=== PATIENT | male | born 1990 | race Caucasian/White ===

== ENCOUNTER → 2025-03-09 | Outpatient (CLI) | payer OTHER, SELFPAY ==
[2025-03-09 17:14] LABS: Hematocrit 42.6 % (40-54); Hemoglobin 14.6 g/dL (13.0-16.5); Immature Granulocytes Count 0.050 X10^3/uL (0.0-0.0); Mean Corp Hgb Conc 34.3 g/dL (32-36); Mean Corpuscular Volume 83.4 fL (80-94); Mean Platelet Vol. 9.0 fl (6.2-12.0); NRBC Flagged by Analyzer 0 % (0-5); Platelet Count 355 K/mm3 (150-450); RBC Distribution Width CV 12.7 % (11.6-14.6); RBC Distribution Width SD 38.2 fl (35.1-43.9); Red Blood Count 5.11 M/mm3 (4.6-6.2); White Blood Count 11.1 K/mm3 (4.4-11.0)
[2025-03-09 17:50] LABS: AST(SGOT) 22 U/L (<=37); Alanine Aminotransfer ALT/SGPT 22 U/L (<=46); Albumin, Serum 4.1 g/dL (3.5-5.0); Alkaline Phosphatase 102 U/L (40-129); Anion Gap 12 (5-15); BUN 16 mg/dL (4-19); BUN/Creat Ratio 13.2 RATIO (10-20); CRP 8.61 mg/L (0.0-3.0); Calcium,Total 9.4 mg/dL (7.6-11.0); Carbon Dioxide 24.3 mmol/L (21.0-32.0); Chloride 102 mmol/L (98-108); Globulin 2.9 g/dL (2.2-4.2); Glucose 93 mg/dL (70-99); Potassium 4.4 mmol/L (3.3-5.1)
--- OUTSIDE RECORDS SUMMARY | 2025-03-09 23:24 | XMS RPT_ITS | CCD ---
Author Organization [facility] ion [facility] Care Team Providers Care Manager Clinical Services Name Role Phone Unavailable Primary Care Provider Unavailobed ISAAC CHIEF CUSTOMER OFFICER-BC, ZAIRA Crespo Unavailable BALTIC Unavailable Unavailable SURGERY, GENERAL Unavailable Unavailable DANYA ACE, NAVEEN Staples Unavailable Nini Yo Unavailable Unavailable USHA ACE, CIARA Guerra Unavailable Zak HOUSER MD Unavailable [phone] Blanca ISAAC MD Unavailable Jayna Burden Unavailable Unavailable RANJIT ACE, GIANCARLO Arellano Unavailable [phone] BOBBY BRUNER Unavailable Unavailable Edison SMITH, Yoalnda Unavailable Unavailable Unavailable Unavailable JASPREET SMITH, ESTRELLA Unavailable Unavaila Nini Marie Unavailable Unavailable PIEDAD VILLAVICENCIO Unavailable MARLIN ACE, BRIANNA Unavailable Dr. Mai Houser MD Primary Care Provider Dr. Mai Houser MD Referring Provider [phone] Praneeth LOWERY Attending Provider FriendPraneeth Attending Unavailable Mai Houser Referring Unavailable Mai Houser Primary Care Unavailable Praneeth Salinas Attending Unavailable Praneeth Salinas Referring Unavailable Mai Houser Primary Care Unavailable Medications Current Medications Medication Drug Class(es) Dates Sig (Normalized) Sig (Original) [id number] 200 actuat albuterol 0.09 mg/actuat metered dose inhaler (19 sources) beta2-Adrenergic Agonist Start: 03-09-2025 Albuterol Sulfate (Ventolin Hfa) 90 mcg/actuation HFA aerosol inhaler Active 2 NMA INHALATION EVERY 6 HOURS as needed March 09, 2025 12:00am Start: 01-19-2025 albuterol sulf ate HFA 90 mcg/actuation aerosol inhaler ; 2 (two) inhalation up to q 6 hours prn wheezing for 30 days Quantity: 18 {Gram} Refills: 11 Ordered: 19-Jan-2025 MD Zak HOUSER Start: 19-Jan-2025 Comments: Please dispense the most cost-effective generic albuterol HFA. Start: 12-21-2023 albuterol sulf ate HFA 90 mcg/actuation aerosol inhaler ; 2 (two) inhalation up to q 6 hours prn wheezing for 30 days Quantity: 18 {Gram} Refills: 11 Ordered: 21-Dec-2023 TRUMAN ISAAC Start: 21-Dec-2023 Comments: Please dispense the most cost-effective generic albuterol HFA. Start: 01-14-2021 End: 11-01-2022 take 2 puff(s) by inhalation every four hours as needed ProAir HFA 90 mcg/actuation inhalation HFA Aerosol with Adapter ; 2 (two) Puff(s) every four hours as needed tightness for 30 days Quantity: 1 {Cartridge} Refills: 5 Ordered: 01-Nov-2022 MD Zak HOUSER Start: 14-Jan-2021 End: 01-Nov-2022 Status: Discontinued Comments: Medication taken as needed. Discontinued by Medication vendor. Comment on above: Please dispense the most cost-effective generic albuterol HFA. Medication taken as needed. Discontinued by Medication vendor. amoxicillin 875 mg / clavulanate 125 mg oral tablet (6 sources) Penicillin-class Antibacterial Start: 01-19-2025 amoxicillin 875 mg-potassium clavulanate 125 mg tablet ; 1 (one) tablet BID for 10 days Quantity: 20 {Tablet} Refills: 0 Ordered: 19-Jan-2025 MD Zak HOUSER Start: 19-Jan-2025 Start: 06-16-2024 End: 06-26-2024 amoxicillin 875 mg-potassium clavulanate 125 mg tablet ; 1 (one) tablet BID for 10 days Quantity: 20 {Tablet} Refills: 0 Ordered: 30-Jun-2024 MD Zak HOUSER Start: 16-Jun-2024 End: 26-Jun-2024 Status: Inactive 12 hr cetirizine hydrochloride 5 mg / pseudoephedrine hydrochloride 120 mg extended release oral tablet (10 sources) alpha-Adrenergic Agonist, Histamine-1 Receptor Antagonist Start: 03-09-2025 take 1 tablet by mouth every twelve hours Cetirizine-Pseudoephedrine (Zyrtec-D) 5-120 mg tablet extended release 12 hr Active 1 {tbl} PO TWICE A DAY March 09, 2025 12:00am Start: 04-18-2022 take 1 tablet by christen th twice daily ZyrTEC-D 5-120 mg oral Tablet, Extended Release 12 hr ; 1 (one) Tablet two times daily for 30 days Quantity: 60 {Tablet} Refills: 5 Ordered: 01-Nov-2022 SARAH VOGEL Start: 18-Apr-2022 Completed/Discontinued Medications Medication Drug Class(es) Dates Sig (Normalized) Sig (Original) amoxicillin 250 mg oral capsule (18 sources) Penicillin-class Antibacterial Start: 11-01-2022 End: 11-11-2022 take 1 capsule by mouth three times daily amoxicillin 250 mg oral capsule ; 1 (one) capsule tid for 10 days Quantity: 30 {Capsule} Refills: 0 Ordered: 14-Dec-2022 MD Zak HOUSER Start: 01-Nov-2022 End: 11-Nov-2022 Status: Inactive Start: 04-18-2022 End: 04-28-2022 take 1 capsule by mouth three times daily Amoxicillin 500 MG Oral Capsule ; 1 (one) Capsule three times daily for 10 days Quantity: 30 {Capsule} Refills: 0 Ordered: 01-Nov-2022 MD NAVEEN HAGAN Start: 18-Apr-2022 End: 28-Apr-2022 Status: Inactive azithromycin 250 mg oral tablet (20 sources) Macrolide Antimicrobial Start: 07-08-2021 End: 07-13-2021 Azithromycin 250 MG Oral Tablet ; 2 (two) Tablet on day one, then 1 tablet daily for 4 days for 5 days Quantity: 6 {Tablet} Refills: 0 Ordered: 18-Apr-2022 MD NAVEEN HAGAN Start: 08-Jul-2021 End: 13-Jul-2021 Status: Inactive Start: 12-07-2017 End: 12-12-2017 Azithromycin 250 MG Oral Tab let ; 2 (two) Tablet on day one, then 1 tablet daily for 4 days for 5 days Quantity: 6 {Tablet} Refills: 0 Ordered: 20-Nov-2018 MD NAVEEN HAGAN Start: 07-Dec-2017 End: 12-Dec-2017 Status: Inactive Start: 10-14-2014 End: 10-19-2014 AZITHROMYCIN, 250MG (Oral Ta blet) ; 2 x 1 then 1 x 4 Tablet daily for 5 days Quantity: 6 {Tablet} Refills: 0 Ordered: 12-Jan-2015 MD Zak HOUSER Start: 14-Oct-2014 End: 19-Oct-2014 Status: Inactive Comments: take two tablets day one and then one tablet daily for 4 days Comment on above: take two tablets day one and then one tablet daily for 4 days dicyclomine hydrochloride 20 mg oral tablet (9 sources) Anticholinergic Start: End: 016 take 1 tablet by mouth at bedtime as needed DICYCLOMINE HCL, 20MG (Oral Tablet) ; 1 (one) Tablet qac and hs prn irritable bowel syndrome for 7 days Quantity: 28 {Tablet} Refills: 3 Ordered: 03-Jan-2016 Start: 05-May-2015 End: 03-Jan-2016 Status: Inactive 12 hr guaiFENesin 1200 mg / pseudoephedrine hydrochloride 120 mg extended release oral tablet (9 sources) alpha-Adrenergic Agonist Start: 015 End: 015 MUCINEX D, 120-1200MG (Oral Tablet Extended Release 12 Hour) ; 1 (one) Tablet ER 12HR two times daily, as needed for 9 days Quantity: 18 {Tablet} Refills: 0 Ordered: 12-Jan-2015 MD Zak HOUSER Start: 14-Oct-2014 End: 23-Oct-2014 Status: Inactive Comments: Medication taken as needed. Comment on above: Medication taken as needed. hydrocortisone 25 mg/ml topical lotion (9 sources) Corticosteroid Start: 012 End: 06-19-2 012 HYDROCORTISONE, 2.5% (External Lotion) ; 1 (one) application apply 2 times daily for 7 days Quantity: 1 {tube} Refills: 0 Ordered: 17-Apr-2013 MD GIANCARLO BURDEN Start: 23-Jan-2012 End: 30-Jan-2012 Status: Inactive Comments: avoid eyes Comment on above: avoid eyes hydrocortisone 10 mg/ml / neomycin 3.5 mg/ml / polymyxin b [id number] unt/ml otic solution (9 sources) Aminoglycoside Antibacterial, Polymyxin-class Antibacterial, Corticosteroid Start: End: neomycin-polymyxin- hydrocort 3.5 mg/mL-10,000 unit/mL-1 % ear solution ; 4 drops Left ear 4 times daily for 7 days Quantity: 1 {Each} Refills: 0 Ordered: 21-Dec-2023 TRUMAN ISAAC Start: 15-Dec-2022 End: 22-Dec-2022 Status: Inactive levoFLOXacin 750 mg oral tablet (9 sources) Quinolone Antimicrobial Start: End: levoFLOXacin 750 mg tablet ; 1 Tablet daily for 5 days Quantity: 5 {Tablet} Refills: 0 Ordered: 26-Dec-2023 TRUMAN ISAAC Start: 21-Dec-2023 End: 26-Dec-2023 Status: Inactive loratadine 10 mg oral tablet (9 sources) take 1 tablet by mouth once daily CLARITIN, 10MG (Oral Tablet) ; 1 daily (10 MG) Status: Inactive predniSONE 10 mg oral tablet (20 sources) Start: End: predniSONE 10 mg tablet ; 6 Tablets days 1,2,3; 4 tablets days 4,5,6; 2 tablets days 7,8,9; 1 tablet days 10,11,12. for 12 days Quantity: 40 {Tablet} Refills: 0 Ordered: 16-Jun-2024 MD Zak HOUSER Start: 07-Apr-2024 End: 19-Apr-2024 Status: Inactive Comments: Take with food. Start: 01-03-2016 End: 12-07-2017 PREDNISONE (AKANKSHA), 10MG (Oral Tablet) ; Tablet D 1-3=6tab daily D 4-6=4tab D 7-9=2tab [id number] for 0 days Quantity: 40 {Tablet} Refills: 0 Ordered: 07-Dec-2017 Start: 03-Jan-2016 End: 07-Dec-2017 Status: Discontinued Comments: This order discontinued per [facility]. Start: 01-12-2015 End: 05-05-2015 take 3 tablets by mouth once daily, then take 2 tablets by mouth once daily PREDNISONE, 20MG (Oral Tablet) ; 3 (three) Tablet daily for 3 days, then 2 tabs daily till gone for 0 days Quantity: 19 {Tablet} Refills: 0 Ordered: 05-May-2015 Start: 12-Jan-2015 End: 05-May-2015 Status: Inactive Start: 01-23-2012 End: 02-04-2012 PREDNISONE (AKANKSHA), 10MG (Oral Tablet) ; Tablet D1-3=4tab D4-6=3tab; D7-9=2tab; [id number] for 12 days Quantity: 30 {Tablet} Refills: 0 Ordered: 17-Apr-2013 MD GIANCARLO BURDEN Start: 23-Jan-2012 End: 04-Feb-2012 Status: Inactive Comments: Days 1,2,3 = 4 tabs daily; Days 4, 5, 6 = 3 tabs daily; Days 7, 8, 9 = 2 tabs daily; Days 10,11,12 = 1 tab daily Comment on above: Days 1,2,3 = 4 tabs daily; Days 4, 5, 6 = 3 tabs daily; Days 7, 8, 9 = 2 tabs daily; Days 10,11,12 = 1 tab daily This order discontin ued per [employer]. Take with food. sulfamethoxazole 800 mg / trimethoprim 160 mg oral tablet (9 sources) Dihydrofolate Reductase Inhibitor Antibacterial, Sulfonamide Antimicrobial Start: 05-07-20 14 End: 05-17-20 14 take 1 tablet by mouth twice daily BACTRIM DS, 800-160MG (Oral Tablet) ; 1 (one) Tablet two times daily for 10 days Quantity: 20 {Tablet} Refills: 0 Ordered: 20-May-2014 MD CIARA KERR Start: 07-May-2014 End: 17-May-2014 Status: Inactive Problems Active Problems Problem Classification Problem Date Documented Da te Episodic/Chronic Abdominal pain (20 sources) Generalized abdominal pain; Translations: [Generalized abdominal pain] Onset: 03-09-2025 12-21-2023 Episodic Allergic reactions (20 sources) Contact dermatitis and other eczema due to plants [except food]; Translations: [Contact dermatitis and other eczema due to other specified agents] 04-17-2013 Episodic Asthma (20 sources) Exacerbation of asthma; Translations: [Unspecified asthma with (acute) exacerbation] 01-03-2016 Chronic Chronic obstructive pulmonary disease and bronchiectasis (20 sources) Bronchitis; Translations: [Bronchitis, not specified as acute or chronic] 07-08-2021 Episodic Diverticulosis and diverticulitis (16 sources) Diverticulitis; Translations: [Diverticulitis of intestine, part unspecified, without perforation or abscess without bleeding] Onset: 03-09-2025 06-16-2024 Chronic Other ear and sense organ disorders (18 sources) Decreased hearing ; Translations: [Unspecified hearing loss, bilateral] 12-15-2022 Chronic Other ear and sense organ disorders (18 sources) Acute otitis externa of left ear; Translations: [Unspecified acute noninfective otitis externa, left ear] 12-15-2022 Episodic Other ear and sense organ disorders (20 sources) Impacted cerumen of bilateral ears; Translations: [Impacted cerumen, bilateral] 12-15-2022 Episodic Other gastrointestinal disorders (20 sources) Irritable bowel syndrome; Translations: [Irritable bowel syndrome without diarrhea] 05-05-2015 Chronic Other gastrointestinal disorders (1 source) Irritable bowel syndrome without diarrhea; Translations: [Irritable bowel syndrome, unspecified] Onset: 03-09-2025 Chronic Other gastrointestinal disorders (9 sources) Diarrhea; Translations: [Diarrhea, unspecified] 05-07-2014 Episodic Other nutritional; endocrine; and metabolic disorders (3 sources) Weight gain; Translations: [Abnormal weight gain] 05-05-2015 Episodic Other nutritional; endocrine; and metabolic disorders (6 sources) Weight increased; Translations: [Abnormal weight gain] 05-05-2015 Episodic Other skin disorders (9 sources) Ingrowing nail 05-07-2014 Episodic Other upper respiratory disease (20 sources) Seasonal allergy; Translations: [Other seasonal allergic rhinitis] 04-18-2022 Chronic Other upper respiratory disease (9 sources) Acute bronchospasm 01-06-2012 Episodic Other upper respiratory infections (20 sources) Acute bacterial pharyngitis; Translations: [Acute pharyngitis due to other specified organisms] 04-18-2022 Episodic Skin and subcutaneous tissue infections (9 sources) Cellulitis and abscess of toe; Translations: [Cellulitis of unspecified toe] 05-07-2014 Episodic Superficial injury; contusion (16 sources) Insect bite of upper limb; Translations: [Insect bite (nonvenomous) of right upper arm, initial encounter] 04-07-2024 Episodic Past or Other Problems Problem Classification Problem Date Documented Da te Episodic/Chronic Asthma (3 sources) Asthma 01-19-2025 Headache; including migraine (9 sources) Headache; including migraine 01-06-2012 Unclassified (9 sources) Abdominal Pain, Male - Symptoms do not include nausea, vomiting or diarrhea. The pain is located in the entire abdomen. The patient describes the pain as aching. Onset was 8 day(s) ago. Associated symptoms do not include fever, bloody stool or dark urine. Note for Abdominal pain: Pain in the abdomen when sitting or lifting, and pain goes down to right legs and R testocles. 12-21-2023 Unclassified (9 sources) Ear pain - The ear pain has been occurring for 1 day. It is both ears. The ear pain is characterized as a pressure sensation, sharp pain and stabbing pain. There has been associated decreased hearing, difficulty sleeping, headache and inability to 'pop' ears, while there has been no chills, ear discharge, fever, nasal congestion, nasal discharge/stuffy nose, recent swimming, runny nose, sinus problems or sore throat. Note for Ear pain: The right one was hurting last night. A little pressure in right ear today, but left one still hurts bad today. 12-15-2022 Unclassified (9 sources) Sore throat - Note for Sore throat: Pt. reports sore throat x 24 hrs. along with symptoms of fatigue, achiness, head/nasal congestion and headache. Denies cough or fever. Pt. states spouse tested positive for Strep Throat on 10/28/22 and is concerned he may have same. 11-01-2022 Unclassified (9 sources) Sore throat - Note for Sore throat: Pt. states started with sore throat - especially left side, 3 days ago. States has generalized body aches and fatigue. Denies fever, cough, head congestion. Pt. further states his son tested positive for Strep on 04/15/22. Pt. states did home COVID test on 04/15, 04/16, 04/17 and all negative. 04-18-2022 Unclassified (9 sources) Cough - The onset of the cough has been acute and has been occurring for weeks. The symptoms have been associated with runny nose and sore throat, while the symptoms have not been associated with fever. Note for Cough: Cough is worse at night, eyes get matted shut, and has used inhaler occasionally. Negative COVID test. and kids have been sick too. 07-08-2021 Unclassified (9 sources) Allergic Rhinitis.. - Symptoms include sneezing, runny nose, itchy eyes and wheezing. Onset was day(s) ago. Note for Allergic Rhinitis..: Pt would like a refill on inhaler. 01-14-2021 Unclassified (9 sources) cough - The cough has been occurring for 1 week. Note for cough: Was achy, had fever 2 days ago, some sore throat, feels SOB with exertion,also has allergies. needs refill of nhaler. 12-07-2017 Unclassified (9 sources) Cold Symptoms - Symptoms include nasal congestion and postnasal drainage. Associated symptoms include wheezing and shortness of breath. Note for Cold symptoms: Patient has been using Zyrtec for allergies and started using his inhalor to relieve symptoms. Symptoms worsened on sunday01/01/2016 and have not improved 01-03-2016 Unclassified (9 sources) !Patient notification of lab results 1 - Rust. The test(s) that you had done were/was blood work (This was basically normal). You should call our office if you have any questions. Please follow up as scheduled and let us know if your symptoms do not improve. 05-06-2015 Unclassified (3 sources) Abdominal Pain, Male - Symptoms include abdominal pain. The pain is located in the right lower quadrant and on the right side more than the left. Onset was 1 year(s) ago. Note for Abdominal pain: Pt. states he has had this pain for over a year, the pain use to be once a month but now is daily. Pt. wonders if he has a hernia or mother has Chrohns Disease. Here for exam. Bowels have been fine. Normal. Moves pretty much every day. Here for exam. 05-05-2015 Unclassified (3 sources) [ADDITIONAL REASON] Thyroid problems - Note for Thyroid problems: Pt. states he sweats alot,and has had weight gain. Pts. states his father was recently diagnosed with Thyroid problems. 05-05-2015 Unclassified (9 sources) Shortness of breath.. - Symptoms include dyspnea, fatigue, weakness, cough and wheezing. Onset was 1 day(s) ago. The patient describes this as worsening. Associated symptoms include sore throat (and headache). Note for Shortness of breath: . 01-12-2015 Unclassified (9 sources) Congestion - Symptoms include cough, fever, nasal congestion, nasal drainage, postnasal drip, runny nose and sore throat. Onset was week(s) ago. The symptoms occur intermittently. Associated symptoms include fatigue and headache. Note for Congestion: Here for exam. 10-14-2014 Unclassified (9 sources) !Patient notification of lab results 1 - Usha. The test(s) that you had done were/was a stool culture and c&s. The results of your testing were negative . Please continue your current medication/therapy. 05-14-2014 Unclassified (2 sources) Abdominal pain - The onset of the abdominal pain has been sudden and has been occurring in an intermittent pattern for 2 months. The course has been constant. The abdominal pain is described as being located in the periumbilical area. The symptoms are relieved by bowel movements. The symptoms have been associated with abdominal distention and diarrhea. Note for Abdominal pain: HOneymoon early February [place] 05-07-2014 Unclassified (2 sources) [ADDITIONAL REASON] Ingrown Toenail - Pt. c/o left [place] toenail x 1 month. Is painful to walk and run. 05-07-2014 Unclassified (9 sources) Poison Laura - The onset of the rash has been acute and has been occurring in persistent pattern for 4 days. The course has been increasing. 04-17-2013 Unclassified (9 sources) Rash - The rash has been occurring for 5 days. The course has been increasing. The rash is characterized as red. The rash was first seen on the upper extremity. It spread to the lower extremity. 01-23-2012 Unclassified (9 sources) sore throat - The onset of the sore throat has been sudden and has been occurring in a persistent pattern for 3 days. The symptoms have been associated with change in voice, chills, cough, fever, post-nasal drip, runny nose and sinus pain. 07-24-2011 Unclassified (8 sources) Rash - The onset of the rash has been acute and has been occurring in a persistent pattern for 4 days. The course has been increasing. The rash is characterized as red and raised above the skin. The patient was possibly exposed while other: working outdoors. The rash was first seen on the upper extremity. It spread to the trunk. There has been associated itching. 04-07-2024 Unclassified (8 sources) [ADDITIONAL REASON] Insect Bite/Sting - The insect causing the bite/sting is thought to be a spider. The patient sustained an insect bite/sting to the right arm. This occurred 4 day(s) ago. Presenting symptoms included itching at the site of the bite/sting and redness at the site of the bite/sting. Symptoms include single bite or sting. 04-07-2024 Unclassified (6 sources) Thyroid problems - Note for Thyroid problems: Pt. states he sweats alot,and has had weight gain. Pts. states his father was recently diagnosed with Thyroid problems. 05-05-2015 Unclassified (6 sources) [ADDITIONAL REASON] Abdominal Pain, Male - Symptoms include abdominal pain. The pain is located in the right lower quadrant and on the right side more than the left. Onset was 1 year(s) ago. Note for Abdominal pain: Pt. states he has had this pain for over a year, the pain use to be once a month but now is daily. Pt. wonders if he has a hernia or mother has Chrohns Disease. Here for exam. Bowels have been fine. Normal. Moves pretty much every day. Here for exam. 05-05-2015 Unclassified (7 sources) Ingrown Toenail - Pt. c/o left [place] toenail x 1 month. Is painful to walk and run. 05-07-2014 Unclassified (7 sources) [ADDITIONAL REASON] Abdominal pain - The onset of the abdominal pain has been sudden and has been occurring in an intermittent pattern for 2 months. The course has been constant. The abdominal pain is described as being located in the periumbilical area. The symptoms are relieved by bowel movements. The symptoms have been associated with abdominal distention and diarrhea. Note for Abdominal pain: HOneymoon early February [place] 05-07-2014 Unclassified (5 sources) Sinusitis - The sinusitis has been occurring in a persistent pattern for 2 weeks. It is characterized as a pressure sensation. There has been associated fatigue, muscle aches and nasal stuffiness, while there has been no cough or fever. Note for Sinusitis: Pt. also reports chest feels tight at times and is short of breath - unsure if due to his asthma. Using Albuterol inhaler and Zyrtec. 06-16-2024 Unclassified (5 sources) [ADDITIONAL REASON] Abdominal Pain, Male - Note for Abdominal pain: Pt. reports low abdominal pain. States believes due to constipation. 06-16-2024 Unclassified (3 sources) [ADDITIONAL REASON] Irritable Bowel Syndrome - Note for Irritable bowel syndrome: Pt. reports flare up. Sharp pain in abdomen and lower back noted 01/15/25. Has been taking stool softeners, which in the past has been effective. No diarrhea or nausea/vomiting. 01-19-2025 Unclassified (1 source) Abdominal Pain, Male - Note for Abdominal pain: Pt. reports low abdominal pain. States believes due to constipation. 06-30-2024 Unclassified (1 source) [ADDITIONAL REASON] Sinusitis - The sinusitis has been occurring in a persistent pattern for 2 weeks. It is characterized as a pressure sensation. There has been associated fatigue, muscle aches and nasal stuffiness, while there has been no cough or fever. Note for Sinusitis: Pt. also reports chest feels tight at times and is short of breath - unsure if due to his asthma. Using Albuterol inhaler and Zyrtec. 06-30-2024 Results Test Name Value Interpretation Reference Range Facility SALLY Comprehensive Panelon SALLY TABLE TNP Normal [facility] Comment on above: Performed By: #### L [id number] #### [facility] [address] [place], [address] Gastroenterology Visit Repor ton 03-09-2025 Gastroenterology Visit Report [facility] Gastroenterology [address] [place] [address] OFFICE VISIT Date of Service: 03/09/25 MR#: [id number] Acct: [id number] Name: ROSA MARIA SPARKS Rep #: [id number] : 1990 Provider: Praneeth Salinas DO Age/Sex: 34/M Location: [facility] Status: Signed Intake Intake Visit Reasons: PRE COLONOSCOPY Allergies No Known Allergies Allergy (Verified 03/09/25 09:02) Medications ???Medication ???Instructions ???Recorded ???Confirmed ???Type albuterol sulfate 90 mcg/actuation 2 puff inhalation Q6H PRN 03/09/25 History aerosol inhaler (Ventolin HFA) cetirizine 5 mg-pseudoephedrine ER 1 tab PO BID 03/09/25 03/09/25 H istory 120 mg tablet,extended release,12hr (Zyrtec-D) PFSH Medical History (Updated 03/09/25 @ 16:[address] Praneeth Salinas DO) Generalized abdominal pain Diverticulitis Irritable bowel syndrome without diarrhea Social History (Updated 03/09/25 @ 15:37 by Lucretia Wilson) Smoking Status: Never smoker alcohol intake: never substance use type: does not use what type of physical activity do you participate in: walking frequency: daily HPI HPI Details: ROSA MARIA SPARKS, is a 34 M who presents to the office today for initial consult. *[facility]I established with referral from PCP for evaluation of IBS / diverticulitis-type symptoms. pt reports he has had two flares about a year apart, will have alternating bowels, abd pain, and gas / bloating; denies blood in stool. Pt reports last flare was end of December / early January of this year. Pt reports that certain foods seem to upset his stomach more and states that his mother has Ulcerative Colitis. Denies current GI symptoms of concern. ROS Const Constitutional: No fatigue, fever(s) or weight change ENT ENT: No difficulty swallowing Gastro GI: Positive for abdominal pain, bloating, change in bowel habits, constipation, diarrhea and excessive flatus; No belching, change in stool character, coffee ground emesis, cramping, heartburn, difficulty swallowing, feeling full early, incontinent of stools, Vomiting blood/hematemesis, Blood in stool, loose stools, Black,tarry stools, nausea/dyspepsia, pain with swallowing, vomiting or other Musc Musculoskeletal: No joint pain Skin Skin: No yellowing of the eye or itchy eyes Psych Psychiatric: No anxiety and No depression Endo Endocrine: No fatigue or weight change Aller/Imm Allergy/Immunologic: No itchy eyes Jean Marie/Lymp Hematologic/Lymphatic: No easy bleeding or easy bruising Exam Const General: cooperative, healthy appearing and comfortable Nutritional Appearance: average body habitus, well nourished and cachectic Orientation: alert, awake and oriented x3 HENMT Head: normal to inspection Ears: hearing grossly normal bilaterally Nose: external nose normal Face and sinus: normal facial exam Mouth: oral mucosae normal Eyes General: appearance normal, both eyes and all related structures Eyelids: eyelids normal Conjunctivae: conjunctivae normal Sclera: sclerae normal Neck Thyroid: thyroid normal Resp Effort Inspection: normal respiratory effort Auscultation: Bilateral: Clear to Auscultation Cardio Rate: regular rate Rhythm: regular rhythm GI Inspection: normal to inspection Auscultation: normal bowel sounds Percussion: normal to percussion Palpation: no hepatosplenomegaly Rectal Exam: deferred Assessment and Plan Assessment and Plan (1) Generalized abdominal pain: Status: Acute (2) Diverticulitis: Status: Acute (3) Irritable bowel syndrome without diarrhea: Status: Acute Plan: 34-year-old male presenting with abdominal pain, which he describes as cramping and occurring mainly after eating. * Reports alternating episodes of diarrhea and constipation. * Family history of ulcerative colitis (UC) reported,???. * No other associated symptoms such as fever, weight loss, or blood in stool reported at this time. Objective * Vitals:???Within normal limits. * Abdominal Examination:???Mild tenderness noted on palpation of the lower left quadrant. No distension or guarding observed. Bowel sounds are normoactive. * Rectal Exam:???Deferred at this time, though a rectal exam could be used to check for inflammation around the anus or blood in the stool. Assessment * 34-year-old male presenting with gastrointestinal symptoms suggestive of inflammatory bowel disease (IBD), specifically ulcerative colitis (UC) or Crohn's disease (CD), given the presence of abdominal pain, alternating diarrhea and constipation, and a family history of UC. * Differential diagnoses also include Irritable Bowel Syndrome (IBS), celiac disease, and infectious enterocolitis. * Although IBS and IBD share some symptoms, IBS does not cause inflammation or physical damage to the digestive tract. * Celiac (more content not included)... Normal [facility] No Panel Informationon 01-20 [employer] No Panel Informationon 01-19 [employer] No Panel Informationon 06-30 [employer] No Panel Informationon 06-19 [employer] No Panel Informationon 06-16 [employer]. No Panel Informationon 04-08 [employer] No Panel Informationon 04-07 [employer] .GFRon 03-20-2024 GFR >60 Normal [facility] ([place]) Comment on above: Result Comment: GFR Population mean for , Non- Americans Ages 20-29 = 116 mL/min/1.73 sq.m. Ages 30-39 = 107 mL/min/1.73 sq.m. Ages 40-49 = 99 mL/min/1.73 sq.m. Ages 50-59 = 93 mL/min/1.73 sq.m. Ages 60-69 = 85 mL/min/1.73 sq.m. Ages 70+ = 75 mL/min/1.73 sq.m. Chronic Kidney Disease: Less than 60 mL/min/1.73 square meters End Stage Renal Disease: Less than 15 mL/min/1.73 square meters Performed By: #### L IPID, CMP, GFR #### [place] [address] GFR Non- >60 Normal [facility] ([place]) Comment on above: Result Comment: GFR Population mean for , Non- Americans Ages 20-29 = 116 mL/min/1.73 sq.m. Ages 30-39 = 107 mL/min/1.73 sq.m. Ages 40-49 = 99 mL/min/1.73 sq.m. Ages 50-59 = 93 mL/min/1.73 sq.m. Ages 60-69 = 85 mL/min/1.73 sq.m. Ages 70+ = 75 mL/min/1.73 sq.m. Chronic Kidney Disease: Less than 60 mL/min/1.73 square meters End Stage Renal Disease: Less than 15 mL/min/1.73 square meters Performed By: #### L IPID, CMP, GFR #### [address] [address] CMPon 03-20-2024 Albumin Level 3.7 G/dL Normal 3.2-4.8 [facility] ([place]) Comment on above: Order Comment: healt h fair: beldin brick Performed By: #### L IPID, CMP, GFR #### [address] [address] Albumin/Globulin [Mass ratio] 1.3 {ratio} Normal 0.9-1.6 [facility] ([place]) Comment on above: Order Comment: healt h fair: [employer] Performed By: #### L IPID, CMP, GFR #### [address] [address] ALP [Catalytic activity/Vol] 109 U/L Normal 38-126 [facility] ([place]) Comment on above: Order Comment: healt h fair: [employer] Performed By: #### L IPID, CMP, GFR #### [place] [id number] [place] [id number] ALT [Catalytic activity/Vol] 42 U/L Normal 12-55 [facility] ([place]) Comment on above: Order Comment: healt h fair: [employer] Performed By: #### L IPID, CMP, GFR #### [address] [address] AST [Catalytic activity/Vol] 26 U/L Normal 8-34 [facility] ([place]) Comment on above: Order Comment: healt h loy: [employer]din [employer] Performed By: #### L IPID, CMP, GFR #### [address] [address] Bili Total 1.00 mg/dL Normal 0.20-1.20 [facility] ([place]) Comment on above: Order Comment: healt h fair: [employer] Result Comment: Use of this assay is not recommended for patients undergoing treatment with eltrombopag due to the potential for falsely elevated results. Performed By: #### L IPID, CMP, GFR #### [address] [address] BUN/Creatinine Ratio 19.1 ratio Normal 10.0-22.0 [facility] ([place]) Comment on above: Order Comment: healt h fair: [employer] Performed By: #### L IPID, CMP, GFR #### [address] [address] Calcium [Mass/Vol] 9.6 mg/dL Normal 8.7-10.4 [facility] ([place]) Comment on above: Order Comment: healt h fair: beldin brick Performed By: #### L IPID, CMP, GFR #### [address] [address] Chloride [Moles/Vol] 106 mmol/L Normal 98-110 [facility] ([place]) Comment on above: Order Comment: healt h fair: [employer] Performed By: #### L IPID, CMP, GFR #### [address] [address] CO2 [Moles/Vol] 30 mmol/L Normal 22-32 [facility] ([place]) Comment on above: Order Comment: healt h fair: [employer] Performed By: #### L IPID, CMP, GFR #### [address] [address] Creatinine [Mass/Vol] 0.89 mg/dL Normal 0.60-1.40 [facility] ([place]) Comment on above: Order Comment: healt h fair: [employer]din [employer] Performed By: #### L IPID, CMP, GFR #### [address] [address] Electrolyte Balance 4.0 mEq/L Normal 4.0-15.0 [facility] ([place]) Comment on above: Order Comment: healt h fair: [employer]din [employer] Performed By: #### L IPID, CMP, GFR #### [address] [address] Globulin 2.9 G/dL Normal 1.5-3.8 [facility] ([place]) Comment on above: Order Comment: healt h fair: [employer]din [employer] Performed By: #### L IPID, CMP, GFR #### [address] [address] Glucose [Mass/Vol] 93 mg/dL Normal 70-110 [facility] ([place]) Comment on above: Order Comment: healt h fair: [employer]din [employer] Performed By: #### L IPID, CMP, GFR #### [address] [address] Potassium [Moles/Vol] 4.5 mmol/L Normal 3.5-5.0 [facility] ([place]) Comment on above: Order Comment: healt h fair: [employer]din [employer] Performed By: #### L IPID, CMP, GFR #### [address] [address] Sodium [Moles/Vol] 140 mmol/L Normal 136-145 [facility] ([place]) Comment on above: Order Comment: healt h fair: [employer]din [employer] Performed By: #### L IPID, CMP, GFR #### [address] [address] Total Protein 6.6 G/dL Normal 5.7-8.2 [facility] ([place]) Comment on above: Order Comment: healt h fair: [employer]din [employer] Result Comment: No te - New Reference Range in effect 20 Performed By: #### L IPID, CMP, GFR #### [address] [address] Urea nitrogen [Mass/Vol] 17.0 mg/dL Normal 8.0-22.0 [facility] ([place]) Comment on above: Order Comment: healt h fair: [employer] Performed By: #### L IPID, CMP, GFR #### [address] [address] LIPIDon 03-20-2024 Cholesterol [Mass/Vol] 161 mg/dL Normal 50-199 [facility] ([place]) Comment on above: Order Comment: healt h fair: [employer] Result Comment: Chol esterol Reference Interval: Less than 200 Desirable 200-239 Borderline high risk 240 and above High risk Performed By: #### L IPID, CMP, GFR #### [address] [address] Cholesterol in HDL [Mass/Vol] 39 mg/dL Low 40-59 [facility] ([place]) Comment on above: Order Comment: healt h fair: [employer] Performed By: #### L IPID, CMP, GFR #### [address] [address] Cholesterol in LDL [Mass/Vol] 104 mg/dL Normal 0-129 [facility] ([place]) Comment on above: Order Comment: healt h fair: [employer]din [employer] Performed By: #### L IPID, CMP, GFR #### [address] [address] Triglyceride [Mass/Vol] 91 mg/dL Normal 3-149 [facility] ([place]) Comment on above: Order Comment: healt h fair: [employer]din [employer] Performed By: #### L IPID, CMP, GFR #### [address] [address] No Panel Informationon 12-20 [facility] Laboratory - Microbiology an d Antimicrobial susceptibilityon 11-01-2022 S. pneumoniae Ag LA Ql (Unsp spec) Positive Abnormal [facility] [id number] 05-25-2021 SARS-CoV-2 (COVID-19) RNA BINA+probe Ql (Unsp spec) SEE SEPARATE REPORT Normal [facility] Comment on above: Result Comment: SPEC IMEN SENT TO A MISCELLANEOUS LAB SEE SCANNED RESULTS FOR TESTING FACILITY INFORMATION CHEST-ONE VIEW ONLY - CXR1on 05-23-2021 CHEST-ONE VIEW ONLY - CXR1 [place] [address] Name: ROSA MARIA SPARKS Phys: KAMILLA MUNOZ D.O. : [birth year] Age: 31 Sex: M Acct: [id number] Loc: ED Exam Date: 05/23/21 Status: REG ER Radiology No.: [id number] Unit Number: [id number] Exam # Type/Exam [id number] RAD / CHEST-ONE VIEW ONLY - CXR1 EXAMINATION: ONE XRAY VIEW OF THE CHEST 05/23/2021 6:45 am COMPARISON: None. HISTORY: Cough. Congestion. Short of breath. FINDINGS: The heart size and mediastinal contours are normal. There is no lung infiltrate or edema. No pneumothorax or pleural fluid is present. The skeletal structures are unremarkable. IMPRESSION: No acute radiographic abnormality of the chest. Electronically signed By Purnima Shanks MD 05/23/2021 6:47:04 AM EST Workstation ID : [id number] < > Reported By: PURNIMA SHANKS M.D. Signed In Fluency By: PURNIMA SHANKS M.D. << Signature on File>> Reported By: PURNIMA SHANKS M.D. Signed By: PURNIMA SHANKS M.D. Tests performed at: [place] [address] Normal [facility] ED PROV NOTEon 05-23-2021 ED PROV NOTE HNO ID: [id number] Author: Kamilla Munoz Service: ? Author Type: Physician Type: ED Provider Notes Filed: 06/03/2021 8:08 AM Note Text: [place] [address] HEALTH INFORMATION MANAGEMENT EMERGENCY DEPARTMENT REPORT Patient: ROSA MARIA SPARKS ELLEN K D.O. [id number] [age] M Status: [facility] ER ED Date of Service: 05/23/21 This is a 31-year-old whose chief complaint is cough and congestion, feels short of breath. HISTORY OF PRESENT ILLNESS: The patient says he has had symptoms for a week. His entire family has been sick. One of his children who was tested for COVID and was negative. He denies a fever, but he is here tonight because he has a burning sensation in his chest when he coughs anything. His is worried that he has pneumonia. He is not having diarrhea. He has only had a cough and sputum production. He denies any abdominal pain, change in bowel habits. REVIEW OF SYSTEMS: Remainder of 10-point review of systems is negative. SOCIAL HISTORY: He is vaccinated x2. He is . Does not smoke, drink, or use drugs of abuse. MEDICATIONS: Zyrtec. ALLERGIES: None. PHYSICAL EXAMINATION: VITAL SIGNS: Stable. He is afebrile. GENERAL: Alert. A well-developed, well-nourished, pleasant male in no distress. HEENT: Head is atraumatic, normocephalic. No scleral icterus. No nasal drainage. Oral mucosa pink, moist. NECK: Supple. CARDIAC: On auscultation, regular. LUNGS: Breath sounds clear. Respirations are unlabored. ABDOMEN: Benign. EXTREMITIES: Intact x4 without clubbing, cyanosis, edema. NEURO: I do not appreciate focal deficits. SKIN: Warm and dry. EMERGENCY DEPARTMENT COURSE: In the emergency department, I did do a chest x-ray, it is negative. We did send a COVID swab as well. I think it is probably a viral process given that has gone to the households, so I do not think antibiotics will be useful for him at this time. He is certainly satting well. I expect him to continue to do well. We will write him for an MDI with spacer. Report#: Dict ID [id number] / Int ID [id number] 06/03/21 0804 KAMILLA MUNOZ D.O. cc: KAMILLA MUNOZ D.O.; GIANCARLO BURDEN M.D. << Signature on File>> Reported By: KAMILLA MUNOZ D.O. Signed By: KAMILLA MUNOZ D.O. Tests performed at: [facility] [address] [place], [place] [address] Normal [facility] EMERGENCY DEPARTMENT REPORTo n 05-23-2021 EMERGENCY [place]PARTMENT [place] [address] HEALTH INFORMATION MANAGEMENT EMERGENCY DEPARTMENT REPORT Patient: ROSA MARIA SPARKS KAMILLA MUNOZ D.O. [id number] [age] M Status: [facility] ER ED Date of Service: 05/23/21 This is a 31-year-old whose chief complaint is cough and congestion, feels short of breath. HISTORY OF PRESENT ILLNESS: The patient says he has had symptoms for a week. His entire family has been sick. One of his children who was tested for COVID and was negative. He denies a fever, but he is here tonight because he has a burning sensation in his chest when he coughs anything. His is worried that he has pneumonia. He is not having diarrhea. He has only had a cough and sputum production. He denies any abdominal pain, change in bowel habits. REVIEW OF SYSTEMS: Remainder of 10-point review of systems is negative. SOCIAL HISTORY: He is vaccinated x2. He is . Does not smoke, drink, or use drugs of abuse. MEDICATIONS: Zyrtec. ALLERGIES: None. PHYSICAL EXAMINATION: VITAL SIGNS: Stable. He is afebrile. GENERAL: Alert. A well-developed, well-nourished, pleasant male in no distress. HEENT: Head is atraumatic, normocephalic. No scleral icterus. No nasal drainage. Oral mucosa pink, moist. NECK: Supple. CARDIAC: On auscultation, regular. LUNGS: Breath sounds clear. Respirations are unlabored. ABDOMEN: Benign. EXTREMITIES: Intact x4 without clubbing, cyanosis, edema. NEURO: I do not appreciate focal deficits. SKIN: Warm and dry. EMERGENCY DEPARTMENT COURSE: In the emergency department, I did do a chest x-ray, it is negative. We did send a COVID swab as well. I think it is probably a viral process given that has gone to the households, so I do not think antibiotics will be useful for him at this time. He is certainly satting well. I expect him to continue to do well. We will write him for an MDI with spacer. Report#: Dict ID [id number] / Int ID [id number] 06/03/21 0804 KAMILLA MUNOZ D.O. cc: KAMILLA MUNOZ D.O.; GIANCARLO BURDEN M.D. << Signature on File>> Reported By: KAMILLA MUNOZ D.O. Signed By: KAMILLA MUNOZ D.O. Tests performed at: [place] [id number] Normal [facility] No Panel Informationon 05-23 [facility] - Chemistry and C hemistry - challengeon 05-05-2015 Bilirubin Ql (U) Negative Normal [employer] [facility] [employer] Ketones Ql (U) Negative Normal [facility] [employer], [employer] pH (U) 5.0 [pH] Normal [facility] [employer], [employer] Specific gravity (U) [Rel density] 1.020 Normal [facility] [employer] Laboratory - Hematology and Cell countson 05-05-2015 Hemoglobin Ql (U) Negative Normal [employer] [facility] Laboratory - Specimen inform ationon 05-05-2015 Appearance (U) CLEAR Normal [employer] Color (U) YELLOW Normal [facility] [employer], [employer] Laboratory - Urinalysison Glucose Test strip (U) [Mass/Vol] Negative Normal [employer] [facility] [employer] [facility] [place], [employer]. Leukocyte esterase Test strip Ql (U) Negative Normal [facility].; [facility] Nitrite Ql (U) Negative Normal [facility].; [facility] [employer] [facility] [place], Inc. Protein Ql (U) Negative Normal [facility], Inc.; [facility] [employer] [facility] [place], Inc. No Panel Informationon 05-05 UA - ODOR Negative Normal [facility].; [facility], [facility] UA - UROBILIGEN 0.2 Normal [facility] [employer] [facility], [employer] Laboratory - Microbiology an d Antimicrobial susceptibilityon 07-24-2011 S. pyogenes Ag EIA Ql (Throat) Negative [facility] [employer] [facility] [employer] [facility] [place], [employer]. Vital Signs Date Time Vital Sign Value Performing Clinician Facility 01-19-2025 16:090400 Body height 180.34 cm ESTRELLA VOGEL RN [facility] [employer] [facility]. 01-19-2025 16:09-0400 Body mass index (BMI) [Ratio] 28.45 kg/m2 ESTRELLA VOGEL RN [facility] [employer] [facility] [employer] [facility] [place], [employer]. 01-19-2025 16:09-0400 Body surface area Derived from formula 2.13 m2 ESTRELLA VOGEL RN [facility] [employer] [facility] [employer] [facility]. 01-19-2025 16:09-0400 Body temperature 98.6 [degF] ESTRELLA VOGEL RN [facility] [employer] [facility] [employer] [facility]. Comment on above: Method: Oral 01-19-2025 16:09-0400 Body weight 92.53 kg ESTRELLA VOGEL RN [facility] [employer] [facility] [employer] [facility] [place]. 01-19-2025 16:09-0400 Diastolic blood pressure 84 mm[Hg] ESTRELLA VOGEL RN [facility] [employer] [facility]. Comment on above: Patient Position: Sitting; Cuff Location : Left Arm; Cuff Size: Standard 01-19-2025 16:09-0400 Heart rate 94 /min ESTRELLA VOGEL RN [facility], [employer] [facility]. Comment on above: Pattern: Regular 01-19-2025 16:09-0400 Inhaled oxygen concentration 21 % ESTRELLA VOGEL RN [facility] [employer] [facility] [place]. Comment on above: Room air 01-19-2025 16:09-0400 SaO2% (BldA) [Mass fraction] 99 % ESTRELLA VOGEL RN [facility]. 01-19-2025 16:09-0400 Systolic blood pressure 114 mm[Hg] ESTRELLA VOGEL RN [facility] [employer] [facility]. Comment on above: Patient Position: Sitting; Cuff Location : Left Arm; Cuff Size: Standard 06-16-2024 16:04-0500 Body height 180.34 cm ESTRELLA VOGEL RN [facility], [employer].; [facility], Inc[facility] 06-16-2024 16:04-0500 Body mass index (BMI) [Ratio] 29.43 kg/m2 ESTRELLA VOGEL RN [facility], Inc.; [facility]. 06-16-2024 16:04-0500 Body surface area Derived from formula 2.16 m2 ESTRELLA VOGEL RN [facility], Inc.; [facility] [employer] [facility]. 06-16-2024 16:04-0500 Body temperature 98.5 [degF] ESTRELLA VOGEL RN [facility].; [facility] [employer] [facility] [place]. Comment on above: Method: Oral 06-16-2024 16:040500 Body weight 95.71 kg ESTRELLA VOGEL RN [facility] [employer] [facility] [place].; [facility] [employer] [facility] [place]. 06-16-2024 16:04-0500 Diastolic blood pressure 87 mm[Hg] ESTRELLA VOGEL RN [facility] [employer] [facility].; [facility] [employer] [facility] [place]. Comment on above: Patient Position: Sitting; Cuff Location : Left Arm; Cuff Size: Standard 06-16-2024 16:04-0500 Heart rate 110 /min ESTRELLA VOGEL RN [facility] [employer] [facility] [place], [employer].; [facility] [employer] [facility]. Comment on above: Pattern: Regular 06-16-2024 16:04-0500 Inhaled oxygen concentration 21 % ESTRELLA VOGEL RN [facility] [employer] [facility].; [facility] [employer] [facility]. Comment on above: Room air 06-16-2024 16:04-0500 SaO2% (BldA) [Mass fraction] 98 % ESTRELLA VOGEL RN [facility] [employer] [facility].; [facility] [employer] [facility]. 06-16-2024 16:04-0500 Systolic blood pressure 127 mm[Hg] ESTRELLA VOGEL RN [facility] [employer] [facility].; [facility] [employer] [facility]. Comment on above: Patient Position: Sitting; Cuff Location : Left Arm; Cuff Size: Standard 04-07-2024 16:16-0400 Body height 180.34 cm ESTRELLA VOGEL RN [facility] [employer] [facility] [place], [employer].; [facility] [employer] [facility]. 04-07-2024 16:16-0400 Body mass index (BMI) [Ratio] 29.43 kg/m2 ESTRELLA VOGEL RN [facility] [employer] [facility] [place], Inc.; [facility] [employer] [facility]. 04-07-2024 16:16-0400 Body surface area Derived from formula 2.16 m2 ESTRELLA VOGEL RN [facility] [employer] [facility] [place], [employer] [facility] Sinclair [employer] [facility] [place]. 04-07-2024 16:16-0400 Body weight 95.71 kg ESTRELLA VOGEL RN [facility] [employer] [facility] [place], [employer].; [facility] [employer] [facility] [place]. 04-07-2024 16:16-0400 Diastolic blood pressure 83 mm[Hg] ESTRELLA VOGEL RN [facility] [employer] [facility] [place] [employer].; [facility] [employer] [facility] [place], [employer]. Comment on above: Patient Position: Sitting; Cuff Location : Left Arm; Cuff Size: Standard 04-07-2024 16:16-0400 Heart rate 93 /min ESTRELLA VOGEL RN [facility], Inc.; [facility] [employer] [facility] [place], Inc. Comment on above: Pattern: Regular 04-07-2024 16:16-0400 Systolic blood pressure 117 mm[Hg] ESTRELLA VOGEL RN [facility] [employer] [facility] [place] [employer].; [facility] [employer] [facility] [place], Inc. Comment on above: Patient Position: Sitting; Cuff Location : Left Arm; Cuff Size: Standard 12-21-2023 09:07-0400 Body height 180.34 cm Nini Luu [facility] [employer] [facility] [place], Inc.; [facility] [employer] [facility] [place], Inc. 12-21-2023 09:07-0400 Body mass index (BMI) [Ratio] 29.03 kg/m2 [facility] [place].; [facility] [employer] [facility] [place], Inc. 12-21-2023 09:07-0400 Body surface area Derived from formula 2.15 m2 Nini [facility] [facility] [place], [employer].; [facility] [employer] [facility] [place], Inc. 12-21-2023 09:07-0400 Body temperature 98.4 [degF] Nini Luu [facility] [employer] [facility] [place], Inc.; [facility] Sinclair [employer] [facility] [place], Inc. Comment on above: Method: Oral 12-21-2023 09:07-0400 Body weight 94.41 kg Nini Luu [facility] [employer] [facility] [place].; [facility] [employer] [facility] [place], Inc. 12-21-2023 09:07-0400 Diastolic blood pressure 88 mm[Hg] Nini Luu [facility] [employer] [facility] [place], Inc.; [facility] Sinclair [employer] [facility] [place], Inc. Comment on above: Patient Position: Sitting; Cuff Location : Left Arm; Cuff Size: Standard 12-21-2023 09:07-0400 Heart rate 94 /min Nini JAVIER [facility], Inc.; [facility] [employer] [facility] [place], Inc. Comment on above: Pattern: Regular 12-21-2023 09:07-0400 Systolic blood pressure 128 mm[Hg] Nini JAVIER [facility], Inc.; [facility] [employer] [facility] [place], Inc. Comment on above: Patient Position: Sitting; Cuff Location : Left Arm; Cuff Size: Standard 12-15-2022 15:58-0400 Body height 177.8 cm Nini JAVIER [facility], Inc.; [facility] [employer] [facility] [place], Inc. 12-15-2022 15:58-0400 Body mass index (BMI) [Ratio] 29.44 kg/m2 Nini Luu [facility], Inc.; [facility] [employer] [facility] [place], Inc. 12-15-2022 15:58-0400 Body surface area Derived from formula 2.11 m2 Nini Luu Marbella [facility], Inc.; [facility] [employer] [facility] [place], Inc. 12-15-2022 15:58-0400 Body temperature 98.4 [degF] Nini Luu Marbella [facility] [employer] [facility] [place], Inc.; [facility] [employer] [facility] [place], Inc. Comment on above: Method: Oral 12-15-2022 15:58-0400 Body weight 93.08 kg Nini Luu Marbella [facility], Inc.; [facility] [employer] [facility] [place], Inc. 12-15-2022 15:58-0400 Diastolic blood pressure 84 mm[Hg] Nini JAVIER [facility] [employer] [facility] [place], Inc.; [facility] [employer] [facility] [place], Inc. Comment on above: Patient Position: Sitting; Cuff Location : Left Arm; Cuff Size: Standard 12-15-2022 15:58-0400 Heart rate 91 /min Nini JAVIER [facility] [employer] [facility] [place], Inc.; [employer] [facility] [employer] [facility] [place], Inc. Comment on above: Pattern: Regular 12-15-2022 15:58-0400 Inhaled oxygen concentration 21 % Nini Dembek [facility], Inc.; [facility] [employer] [facility] [place], [employer]. Comment on above: Room air 12-15-2022 15:58-0400 SaO2% (BldA) [Mass fraction] 97 % Nini Luu [facility], Inc.; [facility], Inc. 12-15-2022 15:58-0400 Systolic blood pressure 121 mm[Hg] Nini Luu [facility], Inc.; [facility] [employer] [facility] [place], Inc. Comment on above: Patient Position: Sitting; Cuff Location : Left Arm; Cuff Size: Standard 11-01-2022 15:10-0400 Body height 177.8 cm ESTRELLA VOGEL RN [facility], [employer] [facility], [employer]. 11-01-2022 15:10-0400 Body mass index (BMI) [Ratio] 29.41 kg/m2 ESTRELLA VOGEL RN [facility] [employer] [facility] [place], [employer].; [facility], Inc. 11-01-2022 15:10-0400 Body surface area Derived from formula 2.11 m2 ESTRELLA VOGEL RN [facility] [employer] [facility] [place], [employer].; [facility] [employer] [facility] [place], Inc. 11-01-2022 15:10-0400 Body temperature 99.2 [degF] ESTRELLA VOGEL RN [facility] [employer] [facility] [place], [employer].; [facility] [employer] [facility] [place], Inc. Comment on above: Method: Oral 11-01-2022 15:10-0400 Body weight 92.99 kg ESTRELLA VOGEL RN [facility] [employer] [facility] [place], [employer].; [facility] [employer] [facility] [place] [employer] 11-01-2022 15:10-0400 Diastolic blood pressure 81 mm[Hg] ESTRELLA VOGEL RN [facility] [employer] [facility] [place] [facility].; [facility] [employer] [facility] [place]. Comment on above: Patient Position: Sitting; Cuff Location : Left Arm; Cuff Size: Standard 11-01-2022 15:10-0400 Heart rate 99 /min ESTRELLA VOGEL RN [facility] [employer] [facility] [place], [employer].; [facility] [employer] [facility] [place]. Comment on above: Pattern: Regular 11-01-2022 15:10-0400 Inhaled oxygen concentration 21 % ESTRELLA VOGEL RN [facility], [employer].; [facility] [employer] [facility] [place], [employer]. Comment on above: Room air 11-01-2022 15:10-0400 SaO2% (BldA) [Mass fraction] 98 % ESTRELLA VOGEL RN [facility], Inc.; [facility] 11-01-2022 15:10-0400 Systolic blood pressure 121 mm[Hg] ESTRELLA VOGEL RN [facility], [employer].; [facility] [employer] [facility] [place]. Comment on above: Patient Position: Sitting; Cuff Location : Left Arm; Cuff Size: Standard 04-18-2022 10:49-0400 Body height 177.8 cm ESTRELLA VOGEL RN [facility], Inc.; [facility], Inc. 04-18-2022 10:49-0400 Body mass index (BMI) [Ratio] 27.55 kg/m2 ESTRELLA VOGEL RN [facility], Inc.; [facility], Inc. 04-18-2022 10:49-0400 Body surface area Derived from formula 2.05 m2 ESTRELLA VOGEL RN [facility], Inc.; [facility], [employer] 04-18-2022 10:49-0400 Body temperature 96.5 [degF] SETRELLA VOGEL RN [facility], [employer].; [facility] [employer] [facility] [place]. Comment on above: Method: Tympanic 04-18-2022 10:49-0400 Body weight 87.09 kg ESTRELLA VOGEL RN [facility] [employer] [facility] [place], [employer].; [facility] [employer] [facility] [place], Inc. 04-18-2022 10:49-0400 Diastolic blood pressure 89 mm[Hg] ESTRELLA VOGEL RN [facility] [employer] [facility] [place], [employer].; [facility] [employer] [facility] [place]. Comment on above: Patient Position: Sitting; Cuff Location : Left Arm; Cuff Size: Standard 04-18-2022 10:49-0400 Heart rate 93 /min ESTRELLA VOGEL RN [facility], [employer].; [facility]. Comment on above: Pattern: Regular 04-18-2022 10:49-0400 Systolic blood pressure 133 mm[Hg] ESTRELLA VOGEL RN [facility], [employer].; [facility]. Comment on above: Patient Position: Sitting; Cuff Location : Left Arm; Cuff Size: Standard 07-08-2021 14:30-0500 Body height 177.8 cm Yolanda Hogan RN [facility], [employer].; [facility] 07-08-2021 14:30-0500 Body mass index (BMI) [Ratio] 28.98 kg/m2 Yolanda Hogan RN [facility], Inc.; [facility], Inc. 07-08-2021 14:30-0500 Body surface area Derived from formula 2.1 m2 Yolanda Hogan RN [facility], Inc.; [facility], [employer]. 07-08-2021 14:30-0500 Body temperature 98.5 [degF] Yolanda Hogan RN [facility], [employer].; [facility] [employer] [facility] [place]. Comment on above: Method: Oral 07-08-2021 14:30-0500 Body weight 91.63 kg Yolanda Hogan RN [facility], Inc.; [facility] [employer] [facility] [place], [employer]. 07-08-2021 14:30-0500 Diastolic blood pressure 91 mm[Hg] Yolanda Hogan RN [facility], [employer].; [facility] [employer] [facility] [place], [employer]. Comment on above: Patient Position: Sitting; Cuff Location : Left Arm; Cuff Size: Large 07-08-2021 14:30-0500 Heart rate 108 /min Yolanda Hogan RN [facility], Inc.; [facility] [employer] [facility] [place], [employer]. Comment on above: Pattern: Regular 07-08-2021 14:30-0500 Inhaled oxygen concentration 21 % Yolanda Hogan RN [facility], [facility].; [facility], Inc. Comment on above: Room air 07-08-2021 14:30-0500 SaO2% (BldA) [Mass fraction] 98 % Yolanda Hogan RN [facility], Inc.; [facility], Inc. 07-08-2021 14:30-0500 Systolic blood pressure 136 mm[Hg] Yolanda Hogan RN [facility], [facility].; [facility], Inc. Comment on above: Patient Position: Sitting; Cuff Location : Left Arm; Cuff Size: Large 01-14-2021 13:37-0400 Body height 177.8 cm Yolanda Hogan RN [facility], [facility].; [facility], Inc. 01-14-2021 13:37-0400 Body mass index (BMI) [Ratio] 30.02 kg/m2 Yolanda Hogan RN [facility], [facility].; [facility], Inc. 01-14-2021 13:37-0400 Body surface area Derived from formula 2.13 m2 Yolanda Hogan RN [facility], [facility].; [facility], Inc. 01-14-2021 13:37-0400 Body temperature 98.4 [degF] Yolanda Hogan RN [facility], [facility].; [facility], Inc. Comment on above: Method: Oral 01-14-2021 13:37-0400 Body weight 94.92 kg Yolanda Hogan RN [facility], [facility].; [facility], Inc. 01-14-2021 13:37-0400 Diastolic blood pressure 89 mm[Hg] Yolanda Hogan RN [facility], [facility].; [facility] [employer] [facility] [place], Inc. Comment on above: Patient Position: Sitting; Cuff Location : Left Arm; Cuff Size: Large 01-14-2021 13:37-0400 Heart rate 132 /min Yolanda Hogan RN [facility], [facility].; [facility]. Comment on above: Pattern: Regular 01-14-2021 13:37-0400 Inhaled oxygen concentration 21 % Yolanda Hogan RN [facility]. Comment on above: Room air 01-14-2021 13:37-0400 SaO2% (BldA) [Mass fraction] 98 % Yolanda Hogan RN [facility].; [facility]. 01-14-2021 13:37-0400 Systolic blood pressure 118 mm[Hg] Yolanda Hogan RN [facility] [employer] [facility] [place] [facility].; [facility]. Comment on above: Patient Position: Sitting; Cuff Location : Left Arm; Cuff Size: Large 12-07-2017 10:33-0400 Body height 177.8 cm ZAIRA ISAAC [employer] Work Phone: [facility] [employer] [facility] [place].; [facility] [employer] [facility] [place]. 12-07-2017 10:33-0400 Body mass index (BMI) [Ratio] 29.41 kg/m2 [employer]IRA [employer] Work Phone: [facility] [employer] [facility] [place].; [facility] [employer] [facility] [place]. 12-07-2017 10:33-0400 Body surface area Derived from formula 2.11 m2 ZAIRA [employer] Work Phone: [facility] [employer] [facility] [place] [facility].; [facility] [employer] [facility] [place]. 12-07-2017 10:33-0400 Body temperature 98.2 [degF] ZAIRA ISAAC [employer] Work Phone: [facility] [employer].; [facility] [employer] [facility] [place]. 12-07-2017 10:33-0400 Body weight 92.99 kg ZAIRA [employer] Work Phone: [facility] [employer] [facility] [place].; [facility] [place] [place]. 12-07-2017 10:33-0400 Diastolic blood pressure 90 mm[Hg] ZAIRA ISAAC CHIEF CUSTOMER OFFICER-BC Work Phone: [employer].; Consultant MarketplaceSA[facility]ERE[facility] [employer]. Comment on above: Patient Position: Sitting; Cuff Location : Left Arm; Cuff Size: Standard 12-07-2017 10:33-0400 Heart rate 98 /min ZAIRA ISAAC CHIEF CUSTOMER OFFICER-BC Work Phone: [employer].; [facility] MarketplaceSA[facility] [employer]. Comment on above: Pattern: Regular 12-07-2017 10:33-0400 Systolic blood pressure 132 mm[Hg] ZAIRA ISAAC CHIEF CUSTOMER OFFICER-BC Work Phone: [employer].; [facility] MarketplaceSA[facility] [employer]. Comment on above: Patient Position: Sitting; Cuff Location : Left Arm; Cuff Size: Standard 01-03-2016 16:30-0400 Body height 177.8 cm ZAIRA ISAAC CHIEF CUSTOMER OFFICER-BC Work Phone: [employer]; [employer]. 01-03-2016 16:30-0400 Body mass index (BMI) [Ratio] 28.27 kg/m2 ZAIRA [employer] Work Phone: [employer]; Hum. 01-03-2016 16:30-0400 Body surface area Derived from formula 2.07 m2 ZAIRA ISAAC CHIEF CUSTOMER OFFICER-BC Work Phone: [employer].; [employer]. 01-03-2016 16:30-0400 Body temperature 99 [degF] ZAIRA [employer] Work Phone: [employer]; Hum. Comment on above: Method: Oral 01-03-2016 16:30-0400 Body weight 89.36 kg ZAIRA [employer]P-BC Work Phone: [employer]; Hum. 01-03-2016 16:30-0400 Diastolic blood pressure 82 mm[Hg] ZAIRA ISAAC CHIEF CUSTOMER OFFICER-BC Work Phone: [employer].; [employer]. Comment on above: Patient Position: Sitting; Cuff Location : Left Arm; Cuff Size: Standard 01-03-2016 16:30-0400 Heart rate 114 /min ZAIRA ISAAC CHIEF CUSTOMER OFFICER-BC Work Phone: [facility] [employer].; Hum. Comment on above: Pattern: Regular 01-03-2016 16:30-0400 Respiratory rate 16 /min ZAIRA ISAAC CHIEF CUSTOMER OFFICER-BC Work Phone: [facility] [employer] [facility] [place] [place].; Hum. Comment on above: Pattern: Unlabored 01-03-2016 16:30-0400 Systolic blood pressure 138 mm[Hg] ZAIRA ISAAC CHIEF CUSTOMER OFFICER-BC Work Phone: [facility].; [employer] [facility] [employer]. Comment on above: Patient Position: Sitting; Cuff Location : Left Arm; Cuff Size: Standard 05-05-2015 15:02-0400 Body height 177.8 cm ZAIRA ISAAC CHIEF CUSTOMER OFFICER-BC Work Phone: [employer].; Hum. 05-05-2015 15:02-0400 Body mass index (BMI) [Ratio] 28.41 kg/m2 ZAIRA ISAAC CHIEF CUSTOMER OFFICER-BC Work Phone: [facility].; Hum. 05-05-2015 15:02-0400 Body surface area Derived from formula 2.08 m2 ZAIRA ISAAC CHIEF CUSTOMER OFFICER-BC Work Phone: [employer].; Hum. 05-05-2015 15:02-0400 Body temperature 98.7 [degF] ZAIRA ISAAC CHIEF CUSTOMER OFFICER-BC Work Phone: [facility] [employer].; [employer]od[employer] [facility] [place]. Comment on above: Method: Oral 05-05-2015 15:02-0400 Body weight 89.81 kg ZAIRA ISAAC CHIEF CUSTOMER OFFICER-BC Work Phone: [facility] [employer] [facility] [place].; [employer] [facility] [employer] [facility] [place] [employer] 05-05-2015 15:02-0400 Diastolic blood pressure 84 mm[Hg] ZAIRA ISAAC CHIEF CUSTOMER OFFICER-BC Work Phone: [facility] [employer] [facility] [place].; [employer] [facility] [employer] [facility] [place]. Comment on above: Patient Position: Sitting; Cuff Location : Left Arm; Cuff Size: Standard 05-05-2015 15:02-0400 Heart rate 89 /min ZAIRA ISAAC CHIEF CUSTOMER OFFICER-BC Work Phone: [facility] [employer] [facility] [place].; [employer] [facility] [employer] [facility] [place]. Comment on above: Pattern: Regular 05-05-2015 15:02-0400 Respiratory rate 16 /min ZAIRA ISAAC CHIEF CUSTOMER OFFICER-BC Work Phone: [facility] [employer] [facility] [place].; [employer] [facility] [employer] [facility] [place]. Comment on above: Pattern: Unlabored 05-05-2015 15:02-0400 Systolic blood pressure 122 mm[Hg] ZAIRA ISAAC CHIEF CUSTOMER OFFICER-BC Work Phone: [facility] [employer] [facility] [place] [facility].; [employer] [facility] [employer] [facility] [place]. Comment on above: Patient Position: Sitting; Cuff Location : Left Arm; Cuff Size: Standard 01-12-2015 15:43-0400 Body height 177.8 cm ZAIRA ISAAC CHIEF CUSTOMER OFFICER-BC Work Phone: [facility].; [employer] [facility] [employer]. 01-12-2015 15:43-0400 Body mass index (BMI) [Ratio] 27.41 kg/m2 ZAIRA ISAAC CHIEF CUSTOMER OFFICER-BC Work Phone: [facility] [employer] [facility] [place].; [employer] [facility] [employer]. 01-12-2015 15:43-0400 Body surface area Derived from formula 2.05 m2 ZAIRA ISAAC CHIEF CUSTOMER OFFICER-BC Work Phone: [facility] [employer] [facility] [place] [employer]; [employer] [facility] S[facility] [facility] [place]. 01-12-2015 15:43-0400 Body temperature 98.8 [degF] ZAIRA HERNANDEZP-BC Work Phone: [facility] [employer] [facility] [place].; [employer] [facility] [employer] [facility] [place]. Comment on above: Method: Oral 01-12-2015 15:43-0400 Body weight 86.64 kg ZAIRA ISAAC CHIEF CUSTOMER OFFICER-BC Work Phone: [facility] [employer] [facility] [place] [employer]; [employer] [facility] [employer]. 01-12-2015 15:43-0400 Diastolic blood pressure 78 mm[Hg] ZAIRA ISAAC CHIEF CUSTOMER OFFICER-BC Work Phone: [facility] [place] [employer]; [employer] [facility] [employer]. Comment on above: Patient Position: Sitting; Cuff Location : Left Arm; Cuff Size: Standard 01-12-2015 15:43-0400 Heart rate 94 /min ZAIRA ISAAC CHIEF CUSTOMER OFFICER-BC Work Phone: [employer] [facility] [place] [employer]; [employer] [facility] [employer]. Comment on above: Pattern: Regular 01-12-2015 15:43-0400 Inhaled oxygen concentration 21 % ZAIRA ISAAC CHIEF CUSTOMER OFFICER-BC Work Phone: [facility] [employer] [facility] [place] [employer]; [employer] [facility] [employer]. Comment on above: Room air 01-12-2015 15:43-0400 SaO2% (BldA) [Mass fraction] 95 % ZAIRA ISAAC CHIEF CUSTOMER OFFICER-BC Work Phone: [facility] [employer] [facility] [place] [employer]; [employer] [facility] [employer]. 01-12-2015 15:43-0400 Systolic blood pressure 116 mm[Hg] ZAIRA ISAAC CHIEF CUSTOMER OFFICER-BC Work Phone: [facility] [place] [employer]; [employer] [facility] On[facility]. Comment on above: Patient Position: Sitting; Cuff Location : Left Arm; Cuff Size: Standard 10-14-2014 15:47-0500 Body height 177.8 cm ZAIRA ISAAC CHIEF CUSTOMER OFFICER-BC Work Phone: [facility] [employer].; [employer]. 10-14-2014 15:47-0500 Body mass index (BMI) [Ratio] 27.84 kg/m2 ZAIRA ISAAC CHIEF CUSTOMER OFFICER-BC Work Phone: [facility] [employer] [facility] [place].; [employer] [facility] S[facility] [facility] [place]. 10-14-2014 15:47-0500 Body surface area Derived from formula 2.06 m2 ZAIRA ISAAC CHIEF CUSTOMER OFFICER-BC Work Phone: [facility] Oncology.; [employer] [facility] NortheastD[employer] [facility] [facility] [place]. 10-14-2014 15:47-0500 Body temperature 98.1 [degF] ZAIRA ISAAC CHIEF CUSTOMER OFFICER-Smart[employer] Work Phone: [facility] [employer].; [employer] [facility]. Comment on above: Method: Oral 10-14-2014 15:47-0500 Body weight 88 kg ZAIRA ISAAC CHIEF CUSTOMER OFFICER-Smart[employer] Work Phone: [facility] [employer].; [employer] [facility]. 10-14-2014 15:47-0500 Diastolic blood pressure 79 mm[Hg] ZAIRA ISAAC CHIEF CUSTOMER OFFICER-Smart[employer] Work Phone: [employer].; [employer]. Comment on above: Patient Position: Sitting; Cuff Location : Left Arm; Cuff Size: Standard 10-14-2014 15:47-0500 Heart rate 98 /min ZAIRA ISAAC CHIEF CUSTOMER OFFICER-BC Work Phone: [employer].; [employer] [facility] [employer]. Comment on above: Pattern: Regular 10-14-2014 15:47-0500 Respiratory rate 16 /min ZAIRA ISAAC CHIEF CUSTOMER OFFICER-BC Work Phone: [employer].; [employer] [facility] [employer]. Comment on above: Pattern: Unlabored 10-14-2014 15:47-0500 Systolic blood pressure 118 mm[Hg] ZAIRA ISAAC CHIEF CUSTOMER OFFICER-BC Work Phone: [facility] [place].; [employer] [facility] [place] [place]. Comment on above: Patient Position: Sitting; Cuff Location : Left Arm; Cuff Size: Standard 05-07-2014 14:18-0400 Body height 177.8 cm ZAIRA ISAAC CHIEF CUSTOMER OFFICER-BC Work Phone: [facility] [place] [employer] [facility] [place]. 05-07-2014 14:18-0400 Body mass index (BMI) [Ratio] 27.84 kg/m2 ZAIRA ISAAC CHIEF CUSTOMER OFFICER-BC Work Phone: [facility].; [employer] [facility] [place] [place]. 05-07-2014 14:18-0400 Body surface area Derived from formula 2.06 m2 ZAIRA ISAAC CHIEF CUSTOMER OFFICER-Smart[employer] Work Phone: [facility] [place] [employer] [facility]. 05-07-2014 14:18-0400 Body temperature 98.5 [degF] ZAIRA ISAAC CHIEF CUSTOMER OFFICER-Smart[employer] Work Phone: [facility].; [employer] [facility] [employer]. Comment on above: Method: Oral 05-07-2014 14:18-0400 Body weight 88 kg ZAIRA ISAAC CHIEF CUSTOMER OFFICER-Smartio Work Phone: [facility].; [employer] [facility]. 05-07-2014 14:18-0400 Diastolic blood pressure 79 mm[Hg] ZAIRA ISAAC CHIEF CUSTOMER OFFICER-[employer] Work Phone: [employer].; [employer] [facility] [employer]. Comment on above: Patient Position: Sitting; Cuff Location : Left Arm; Cuff Size: Standard 05-07-2014 14:18-0400 Heart rate 99 /min ZAIRA ISAAC CHIEF CUSTOMER OFFICER-[employer] Work Phone: [employer].; [employer]. Comment on above: Pattern: Regular 05-07-2014 14:18-0400 Respiratory rate 16 /min ZAIRA ISAAC CHIEF CUSTOMER OFFICER-BC Work Phone: [employer].; [employer]. Comment on above: Pattern: Unlabored 05-07-2014 14:18-0400 Systolic blood pressure 122 mm[Hg] ZAIRA ISAAC CHIEF CUSTOMER OFFICER-BC Work Phone: [facility] [place].; [employer]. Comment on above: Patient Position: Sitting; Cuff Location : Left Arm; Cuff Size: Standard 04-17-2013 16:18-0400 Body height 175.26 cm ZAIRA ISAAC CHIEF CUSTOMER OFFICER-BC Work Phone: [employer].; [employer] [facility] [employer]. 04-17-2013 16:18-0400 Body mass index (BMI) [Ratio] 27.91 kg/m2 ZAIRA ISAAC CHIEF CUSTOMER OFFICER-BC Work Phone: [employer].; [employer] 04-17-2013 16:18-0400 Body surface area Derived from formula 2.02 m2 ZAIRA ISAAC CHIEF CUSTOMER OFFICER-BC Work Phone: [employer].; [employer]. 04-17-2013 16:18-0400 Body weight 85.73 kg ZAIRA ISAAC CHIEF CUSTOMER OFFICER-BC Work Phone: [employer].; [employer]. 04-17-2013 16:18-0400 Diastolic blood pressure 72 mm[Hg] ZAIRA ISAAC CHIEF CUSTOMER OFFICER-BC Work Phone: [employer].; [employer]. Comment on above: Patient Position: Sitting; Cuff Location : Left Arm; Cuff Size: Standard 04-17-2013 16:18-0400 Heart rate 88 /min ZAIRA ISAAC CHIEF CUSTOMER OFFICER-BC Work Phone: [employer].; [employer]. Comment on above: Pattern: Regular 04-17-2013 16:18-0400 Respiratory rate 16 /min ZAIRA ISACA CHIEF CUSTOMER OFFICER-BC Work Phone: [facility] [place] [employer]. Comment on above: Pattern: Unlabored 04-17-2013 16:18-0400 Systolic blood pressure 118 mm[Hg] ZAIRA ISAAC CHIEF CUSTOMER OFFICER-BC Work Phone: [facility] [place].; [employer]. Comment on above: Patient Position: Sitting; Cuff Location : Left Arm; Cuff Size: Standard 01-23-2012 16:26-0400 Body height 175.26 cm ZAIRA ISAAC CHIEF CUSTOMER OFFICER-BC Work Phone: [employer].; [employer]. 01-23-2012 16:26-0400 Body mass index (BMI) [Ratio] 24.96 kg/m2 ZAIRA ISAAC CHIEF CUSTOMER OFFICER-BC Work Phone: [employer].; [employer]. 01-23-2012 16:26-0400 Body surface area Derived from formula 1.92 m2 ZAIRA ISAAC CHIEF CUSTOMER OFFICER-BC Work Phone: [employer].; [employer]. 01-23-2012 16:26-0400 Body weight 76.66 kg ZAIRA ISAAC CHIEF CUSTOMER OFFICER-BC Work Phone: [employer].; [facility]. 01-23-2012 16:26-0400 Diastolic blood pressure 76 mm[Hg] ZAIRA ISAAC CHIEF CUSTOMER OFFICER-BC Work Phone: [employer].; [employer]. Comment on above: Patient Position: Sitting; Cuff Location : Left Arm; Cuff Size: Standard 01-23-2012 16:26-0400 Heart rate 94 /min ZAIRA ISAAC CHIEF CUSTOMER OFFICER-BC Work Phone: [employer]; [employer]. Comment on above: Pattern: Regular 01-23-2012 16:26-0400 Systolic blood pressure 109 mm[Hg] ZAIRA ISAAC CHIEF CUSTOMER OFFICER-BC Work Phone: [employer]; [employer]. Comment on above: Patient Position: Sitting; Cuff Location : Left Arm; Cuff Size: Standard 01-06-2012 11:23-0400 Body height 175.26 cm ZAIRA ISAAC CHIEF CUSTOMER OFFICER-BC Work Phone: [employer]; [employer]. 01-06-2012 11:23-0400 Body mass index (BMI) [Ratio] 24.96 kg/m2 ZAIRA ISAAC CHIEF CUSTOMER OFFICER-BC Work Phone: [employer]; [employer]. 01-06-2012 11:23-0400 Body surface area Derived from formula 1.92 m2 ZAIRA ISAAC CHIEF CUSTOMER OFFICER-BC Work Phone: [employer]; [employer]. 01-06-2012 11:23-0400 Body temperature 98.3 [degF] ZAIRA ISAAC CHIEF CUSTOMER OFFICER-BC Work Phone: [employer]; [employer]. Comment on above: Method: Oral 01-06-2012 11:23-0400 Body weight 76.66 kg ZAIRA ISAAC CHIEF CUSTOMER OFFICER-BC Work Phone: [employer]; [employer]. 01-06-2012 11:23-0400 Diastolic blood pressure 77 mm[Hg] ZAIRA ISAAC CHIEF CUSTOMER OFFICER-BC Work Phone: [employer]; [employer] Comment on above: Patient Position: Sitting; Cuff Location : Left Arm; Cuff Size: Standard 01-06-2012 11:23-0400 Heart rate 83 /min ZAIRA ISAAC CHIEF CUSTOMER OFFICER-BC Work Phone: [employer]; [employer] Comment on above: Pattern: Regular 01-06-2012 11:23-0400 Systolic blood pressure 124 mm[Hg] ZAIRA ISAAC CHIEF CUSTOMER OFFICER-BC Work Phone: [employer] [facility]; [employer] [facility] [employer]. Comment on above: Patient Position: Sitting; Cuff Location : Left Arm; Cuff Size: Standard 07-24-2011 14:07-0500 Body height 175.26 cm ZAIRA ISAAC CHIEF CUSTOMER OFFICER-BC Work Phone: [facility].; [employer]. 07-24-2011 14:07-0500 Body mass index (BMI) [Ratio] 23.92 kg/m2 ZAIRA ISAAC CHIEF CUSTOMER OFFICER-BC Work Phone: [facility].; [employer] [facility] [employer]. 07-24-2011 14:07-0500 Body surface area Derived from formula 1.89 m2 ZAIRA ISAAC CHIEF CUSTOMER OFFICER-Smartio Work Phone: [facility] [place]; [employer]. 07-24-2011 14:07-0500 Body temperature 99.4 [degF] ZAIRA ISAAC CHIEF CUSTOMER OFFICER-Smartio Work Phone: [employer]; [employer]. Comment on above: Method: Oral 07-24-2011 14:07-0500 Body weight 73.48 kg ZAIRA ISAAC CHIEF CUSTOMER OFFICER-[employer] Work Phone: [employer].; [employer]. 07-24-2011 14:07-0500 Diastolic blood pressure 82 mm[Hg] ZAIRA ISAAC CHIEF CUSTOMER OFFICER-BC Work Phone: [employer]; [employer]. Comment on above: Patient Position: Sitting; Cuff Location : Left Arm; Cuff Size: Standard 07-24-2011 14:07-0500 Heart rate 96 /min ZAIRA ISAAC CHIEF CUSTOMER OFFICER-BC Work Phone: [employer]; [facility]. Comment on above: Pattern: Regular 07-24-2011 14:07-0500 Respiratory rate 16 /min ZAIRA ISAAC CHIEF CUSTOMER OFFICER-BC Work Phone: [facility] [employer] [facility]. Comment on above: Pattern: Unlabored 07-24-2011 14:07-0500 Systolic blood pressure 120 mm[Hg] ZAIRA ISAAC CHIEF CUSTOMER OFFICER-BC Work Phone: [facility] [employer] [facility] [place].; [facility] [employer] [facility] [place]. Comment on above: Patient Position: Sitting; Cuff Location : Left Arm; Cuff Size: Standard Encounters Encounter Date Encounter Type Care Provider Facility Start: 03-09-2025 ambulatory Praneeth Salinas Facility :[facility] Start: 03-09-2025 End: 03-09-2025 Patient encounter procedure Praneeth Salinas DO -[facility] Work Phone: Start: 03-09-2025 End: 03-09-[address] Mai Houser MD Work Phone: [facility] Start: 01-20-2025 Review Zak HOUSER MD Work Phone: [facility] [employer] [facility] [place] [place]. Start: 01-19-2025 Review Zak HOUSER MD Work Phone: [facility] [employer] [facility] [place]. Start: 01-19-2025 End: 01-19-2025 Office outpatient visit 15 minutes Zak HOUSER MD Work Phone: [facility] [employer] [facility] [place]. Start: 06-16-2024 End: 06-16-2024 Office outpatient visit 15 minutes ZAIRA ISAAC CHIEF CUSTOMER OFFICER-BC Work Phone: [facility] [employer] [facility] [place]. Start: 04-07-2024 End: 04-07-2024 Office outpatient visit 15 minutes ZAIRA ISAAC CHIEF CUSTOMER OFFICER-BC Work Phone: [facility] [employer] [facility] [place]. Start: 12-21-2023 End: 12-21-2023 Office outpatient visit 15 minutes ZAIRA ISAAC CHIEF CUSTOMER OFFICER-BC Work Phone: [employer] Start: 12-15-2022 End: 12-15-2022 Office outpatient visit 15 minutes ZAIRA ISAAC CHIEF CUSTOMER OFFICER-BC Work Phone: [facility] [employer] Start: 11-01-2022 End: 11-01-2022 Lab Only ZAIRA ISAAC CHIEF CUSTOMER OFFICER-BC Work Phone: [facility] [employer] Start: 11-01-2022 End: 11-01-2022 Office outpatient visit 15 minutes ZAIRA ISAAC CHIEF CUSTOMER OFFICER-BC Work Phone: [employer] Start: 04-18-2022 End: 04-18-2022 Office outpatient visit 15 minutes ZAIRA ISAAC CHIEF CUSTOMER OFFICER-BC Work Phone: [employer] Start: 07-08-2021 End: 07-08-2021 Office outpatient visit 15 minutes ZAIRA ISAAC CHIEF CUSTOMER OFFICER-BC Work Phone: [employer] Start: 05-23-2021 End: 05-23-2021 Subsequent hospital visit by physician Provider [facility] Comment on above: SOA Start: 01-14-2021 End: 01-14-2021 Office outpatient visit 15 minutes ZAIRA ISAAC CHIEF CUSTOMER OFFICER-BC Work Phone: [employer]. Start: 12-07-2017 End: 12-07-2017 Office outpatient visit 15 minutes ZAIRA ISAAC CHIEF CUSTOMER OFFICER-BC Work Phone: [employer] Start: 01-03-2016 End: 01-03-2016 Office outpatient visit 15 minutes ZAIRA ISAAC CHIEF CUSTOMER OFFICER-BC Work Phone: [place] [employer] Start: 05-07-2015 End: 05-07-2015 Results Review ZAIRA ISAAC CHIEF CUSTOMER OFFICER-BC Work Phone: [facility] [employer] [facility] [place]. Start: 05-06-2015 End: 05-06-2015 Follow-up encounter ZAIRA ISAAC CHIEF CUSTOMER OFFICER-BC Work Phone: [facility] [employer] [facility] [place], [employer] Start: 05-05-2015 End: 05-05-2015 Office outpatient visit 15 minutes ZAIRA ISAAC CHIEF CUSTOMER OFFICER-BC Work Phone: [facility] [facility] [place] [employer] Start: 01-12-2015 End: 01-12-2015 Office outpatient visit 15 minutes ZAIRA ISAAC CHIEF CUSTOMER OFFICER-BC Work Phone: [facility] [employer] [facility] [place]. Start: 10-14-2014 End: 10-14-2014 Office outpatient visit 15 minutes ZAIRA ISAAC CHIEF CUSTOMER OFFICER-BC Work Phone: [facility] [employer] [facility] [place]. Start: 05-14-2014 End: 05-14-2014 Results Review ZAIRA ISAAC CHIEF CUSTOMER OFFICER-BC Work Phone: [facility] [employer] [facility] [place]. Start: 05-07-2014 End: 05-07-2014 Patient encounter procedure ZAIRA ISAAC CHIEF CUSTOMER OFFICER-BC Work Phone: [facility] [employer] [facility] [place]. Start: 04-17-2013 End: 04-17-2013 Patient encounter procedure ZAIRA ISAAC CHIEF CUSTOMER OFFICER-BC Work Phone: [facility] [employer] [facility] [place]. Start: 01-23-2012 End: 01-23-2012 Patient encounter procedure ZAIRA ISAAC CHIEF CUSTOMER OFFICER-BC Work Phone: [facility] [employer] [facility] [place]. Start: 01-06-2012 End: 01-06-2012 Patient encounter procedure ZAIRA ISAAC CHIEF CUSTOMER OFFICER-BC Work Phone: [facility] [employer] [facility] [place]. Start: 07-24-2011 End: 07-24-2011 Patient encounter procedure ZAIRA ISAAC CHIEF CUSTOMER OFFICER-BC Work Phone: [facility] Start: 07-24-2011 End: 07-24-2011 Historical Summary ZAIRA ISAAC CHIEF CUSTOMER OFFICER-BC Work Phone: [facility] Start: 07-15-2010 End: 07-15-2010 Historical Summary ZAIRA ISAAC CHIEF CUSTOMER OFFICER-BC Work Phone: [facility] Procedures Date Procedure Procedure Detail Performing Clinician Start: 01-19-2025 End: 01-19-2025 Dischrg meds reconciled w/current med list Zak HOUSER MD Work Phone: Start: 06-16-2024 End: 06-16-2024 Dischrg meds reconciled w/current med list Zak HOUSER MD Work Phone: Start: 04-07-2024 End: 04-07-2024 Dischrg meds reconciled w/current med list Zak HOUSER MD Work Phone: Start: 12-21-2023 End: 12-21-2023 Dischrg meds reconciled w/current med list ZAIRA ISAAC CHIEF CUSTOMER OFFICER-BC Work Phone: Start: 12-21-2023 End: 12-21-2023 No Known Past Surgical History Nini Luu Marbella Start: 12-15-2022 End: 12-15-2022 Removal impacted cerumen instrumentation unilat ZAIRA ISAAC CHIEF CUSTOMER OFFICER-BC Work Phone: Start: 12-15-2022 End: 12-15-2022 Dischrg meds reconciled w/current med list ZAIRA ISAAC CHIEF CUSTOMER OFFICER-BC Work Phone: Start: 11-01-2022 End: 11-01-2022 Dischrg meds reconciled w/current med list Zak HOUSER MD Work Phone: Start: 04-18-2022 End: 04-18-2022 Dischrg meds reconciled w/current med list NAVEEN HAGAN MD Work Phone: Start: 07-08-2021 End: 07-08-2021 Dischrg meds reconciled w/current med list NAVEEN HAGAN MD Work Phone: Start: 05-23-2021 Radiologic exam ches t single view Kamilla Munoz Work Phone: Start: 01-14-2021 End: 01-14-2021 Dischrg meds reconciled w/current med list NAVEEN HAGAN MD Work Phone: Start: 01-14-2021 End: 01-14-2021 Therapeutic prophylactic/dx injection subq/im NAVEEN HAGAN MD Work Phone: Start: 01-14-2021 End: 01-14-2021 Triamcinolone acet inj NOS NAVEEN Alvarado MD Work Phone: Start: 01-14-2021 End: 01-14-2021 Urinary Incontinence Nini Luu [facility] Comment on above: Negative. Start: 01-12-2015 End: 01-12-2015 Therapeutic prophylactic/dx injection subq/im MAI HAGAN MD Work Phone: Start: 01-12-2015 End: 01-12-2015 Triamcinolone acet inj NOS MAI HAGAN MD Work Phone: Start: 04-17-2013 End: 04-17-2013 Therapeutic prophylactic/dx injection subq/im CIARA KERR MD Work Phone: Start: 04-17-2013 End: 04-17-2013 Triamcinolone acet inj NOS CIARA SCHWARTZ MD Work Phone: Start: 01-06-2012 End: 01-06-2012 Therapeutic prophylactic/dx injection subq/im GIANCARLO BURDEN MD Work Phone: Start: 01-06-2012 End: 01-06-2012 Triamcinolone acet inj NOS GIANCARLO GARCIA MD Work Phone: Plan of Treatment Date Care Activity Detail Author Start: 07-27-2025 FQHC visit, estab pt Medical; ESTABLISHED PATIENT ROUTINE VISIT - [facility] [employer] Start: 27-Jul-2025 16:00-05:00 MD Zak HOUSER Appointment Request [facility] Start: 04-13-2021 Influenza vaccination INFLUENZA (#1) [facility] Start: 05-05-2015 Assay of thyroid stimulating hormone tsh TSH (THYROID STIMULATING HORMONE) (97130) Start: 05-May-2015 16:17-04:00 Request [employer].; [employer] Start: 05-05-2015 C-reactive protein C-REACTIVE PROTEIN (52439) Start: 05-May-2015 16:17-04:00 Request [employer].; [employer] Start: 05-05-2015 Comprehensive metabolic panel METABOLIC PANEL, COMPREHENSIVE (51127) Start: 05-May-2015 16:17-04:00 Request [employer].; [employer] Start: 10-14-2014 Iaadiadoo streptococcus group a RAPID STREP (32828) (In Office) Start: 14-Oct-2014 16:36-05:00 Request [employer].; [employer] Start: 05-07-2014 Patient Education [employer].; [employer] Start: 04-17-2013 Patient Education POISON LAURA Indication: POISON LAURA Start: 17-Apr-2013 Instruction Type: Patient Education [employer].; [employer] Start: 01-06-2012 Patient Education ALLERGIC RHINITIS Indication: Seasonal allergies Start: 06-Jan-2012 Instruction Type: Patient Education [employer].; [employer] Start: 07-24-2011 Patient Education SORE THROAT Indication: Sore throat Start: 24-Jul-2011 Instruction Type: Patient Education [employer].; [employer] Start: 2010 Urine microalbumin profile DTAP,TDAP,TD (1 - Tdap) [facility] Start: 2009 HEPATITIS C SCREENING HEPATITIS C SCREENING [facility] Start: 2009 HIV SCREENING HIV SCREENING [facility] Start: 2003 Adult depression screening assessment DEPRESSION SCREENING [facility] Start: 2003 COVID-19 VACCINE (1) COVID-19 VACCINE (1) [facility] Td (7 years and up) Scheduled for Administration Intent [employer].; [employer] [facility]. Payers Date Payer Category Payer Self-pay 2025 Unknown [id number] Unknown Unknown [id number] Unknown [id number] Social History Date Type Detail Facility Start: 07-31-2018 End: 03-09-2025 Tobacco smoking status NHIS Never smoker [facility] Start: 07-31-2018 Tobacco use and exposure Never used [facility] Start: 07-31-2018 Alcohol intake Current drinke r of alcohol (finding) [facility] Start: 1990 Sex Assigned At Not on file [facility] Alcohol Use: Alcohol Use: ; Occasional alcohol use. [employer].; [facility] [employer]. Current Work/Study Status Current Work/Study Status [employer].; [employer] [facility] [employer]. Tobacco use: Tobacco use: ; N ever smoker. [employer].; [facility] [place] Start: 1990 Male [facility] Occasional alcohol use [employer].; [facility] [place]. Work Phone: Evaluation note Note Date & Type Note Facility Evaluation note No assessment information availa arlyn [facility] Work Phone: Reason for referral (narrative) Note Date & Type Note Facility Reason for referral (narrative) No reason for referral information available [place] [facility] Work Phone: Summary Purpose Family History No Family History Records FoundNo Family History Records FoundNo Family History Records FoundNo Family History Records Found Advance Directives No Advanced Directives Records FoundNo Advanced Directives Records FoundNo Advanced Directives Records FoundNo Advanced Directives Records Found Chief Complaint and Reason for Visit Chief Complaint Admit Date PRE COLONOSCOPY March 09, 2025 3:19 pm Additional Source Comments Source Comments (unrecognize d section and content) In the event this informatio n is protected by the Federal Confidentiality of Alcohol and Drug Abuse Patient Records regulations: The Federal rules restrict any use of the information to criminally investigate or prosecute any alcohol or drug abuse patient.[facility] (unrecognized sect ion and content) No Status Records FoundNo Status Records FoundNo Status Records FoundNo Status Records Found INFORMATION SOURCE (unrecogn ized section and content) DATE CREATED AUTHOR 06/04/2021 [facility] DATE CREATED AUTHOR AUTHOR'S ORGANIZ ATION 06/04/2021 [facility] DATE CREATED AUTHOR AUTHOR'S ORGANIZ ATION 03/23/2024 [facility] ([place]) DATE CREATED AUTHOR AUTHOR'S ORGANIZ ATION 03/09/2025 [facility] Care Teams (unrecognized sec tion and content) Team Status: Active Member Role/Relationship Status Dates Dr. Mai Houser MD Primary Care Provider Active Team Status: Inactive Member Role/Relationship Status Dates Dr. Mai Houser MD Primary Care Provider Active Start: March 09, 2025 End: March 09, 2025 Dr. Mai Houser MD Referring Provider Active Start: March 09, 2025 End: March 09, 2025 Dr. Praneeth Salinas DO Attending Provider Active Start: March 09, 2025 End: March 09, 2025 Goals (unrecognized section and content) Goals may be documented in a n alternate section FOR RECORDS PERTAINING TO PATIENTS WHO ARE OR HAVE BEEN ENROLLED IN A CHEMICAL DEPENDENCY/SUBSTANCEABUSE PROGRAM, SOME INFORMATION MAY BE OMITTED. This clinical summary was aggregated from multiple sources. Caution should be exercised in using it in the provision of clinical care. This summary normalizes information from multiple sources, and as a consequence, information in this document may materially change the coding, format and clinical context of patient data. In addition, data may be omitted in some cases. CLINICAL DECISIONS SHOULD BE BASED ON THE PRIMARY CLINICAL RECORDS. [facility] [employer] [facility]. provides no warranty or guarantee of the accuracy or completeness of information in this document.
[2025-03-14 07:08] LABS: Anti-Chromatin <0.2 AI (0.0-0.9); Anti-Jo <0.2 AI (0.0-0.9); Anti-dsDNA Ab <1 IU/mL (0-9); Egg, White <0.10 kU/L (Class 0); SCALLOP <0.10 kU/L (Class 0); SESAME SEED 1.15 kU/L (Class II); SJOGREN'S Anti-SS-A test < 0.2 AI (0.0-0.9); SJOGREN'S Anti-SS-B test < 0.2 AI (0.0-0.9); Walnut, (Food) 0.46 kU/L (Class I)
== END | disposition home or self-care (01) ==
PROVIDERS: PCP Family Medicine; Referring Provider Internal Medicine Gastroenterology; Visit Provider Internal Medicine Gastroenterology
DX: K57.92 Diverticulitis of intestine, part unspecified, without perforation or abscess without bleeding (principal); K58.9 Irritable bowel syndrome, unspecified; R10.84 Generalized abdominal pain
CPT/HCPCS: 36415; 80053; 82784; 82785; 83516; 84165; 85025; 85652; 86003; 86036; 86037; 86140; 86225; 86235; 86255; 86334; 86671

== ENCOUNTER 2025-05-04 08:48 | Day surgery (SDC) | payer OTHER, SELFPAY ==
[2025-05-04] VITALS (8 sets, daily range): BP systolic 86–124; BP diastolic 51–94; PULSE 67–93; RESP 14–16; TEMP 36.5–36.8; O2SAT 96–99; BMI 27.6
--- NOTE | 2025-05-04 09:03 | PCM.PRE.AN2 ---
ASA Classification* ASA Classification ASA Classification: 2 Assessment & Plan Anesthesia* Anesthesia Assessment Anesthesia Assessment: Discussed sedation and/or anesthesia options, risks, benefits, and alternatives with patient/parents/legal guardian/POA. Questions invited. The patient/parents/legal guardian/POA seems to understand and agrees to proceed with anesthesia plan. Reviewed the physical assessment, medical history, allergy history and patient home medications list prior to surgery/procedure/anesthetic and documented any changes. Performed airway and anesthesia risk assessments. Anesthesia Type Anesthesia Type: MAC Anesthesia Focused Assessment* Airway Assessment Mouth opens: >3 cm Mallampati Score: II Labs Anesthesia Preop lab: CBC WBC, (4.4-11.0) 11.1 K/mm3 H 03/09/25, 16:37 RBC, (4.6-6.2) 5.11 M/mm3 03/09/25, 16:37 Hgb, (13.0-16.5) 14.6 g/dL 03/09/25, 16:37 Hct, (40-54) 42.6 % 03/09/25, 16:37 Plt Count, (150-450) 355 K/mm3 03/09/25, 16:37 CHEMISTRY Potassium, (3.3-5.1) 4.4 mmol/L 03/09/25, 16:37 Sodium, (133-145) 138 mmol/L 03/09/25, 16:37 BUN, (4-19) 16 mg/dL 03/09/25, 16:37 Creatinine, (0.70-1.20) 1.18 mg/dL 03/09/25, 16:37 Glucose, (70-99) 93 mg/dL 03/09/25, 16:37 COAG Pre-Assessment Diagnosis/Proposed Procedure Planned Operative Procedure(s): COLONOSCOPY Anesthesia History Anesthesia History - customer success specialist: Anesthesia History - customer success specialist Hx Hospitalization No 04/29/25 09:42 Any Problems With Anesthesia No 04/29/25 09:42 Cholinesterase deficiency No 04/29/25 09:42 You/Your Family Experience No 04/29/25 09:42 fever (hyperthermia) with Relationship Recent Exposure to Contagious Disease Does patient have nerve No 04/29/25 09:42 stimulator Patient instructed to have device shut off --Does patient have Pacemaker or ICD? When Was Last Pacemaker Check QUESTION #4 FULL TEXT: You/Your Family Experience fever (hyperthermia) with Anesthesia Last Oral Intake Last Oral intake: Last Oral Intake NPO since Meds taken in AM with sips of water? Meds patient instructed to take am of surgery PONV PONV - customer success specialist: PONV - customer success specialist Female No 04/29/25 09:42 HX of Motion Sickness No 04/29/25 09:42 HX of N/V After Surgery No 04/29/25 09:42 Non-Smoker Yes 04/29/25 09:42 Duration of Surgery greater No 04/29/25 09:42 than 60 minutes Number of Risk Factors 1 04/29/25 09:42 PONV Score Low Risk 04/29/25 09:42 Respiratory Assessment Respiratory Assessment - customer success specialist: Respiratory Tract Infection Hx - customer success specialist Hx Respiratory Tract Infection No 04/29/25 09:42 STOP Sleep Apnea STOP Sleep Apnea - customer success specialist: STOP Sleep Apnea - customer success specialist Hx Hypertension No 04/29/25 09:42 Hx Sleep Apnea No 04/29/25 09:42 CPAP BIPAP Do you snore loudly (louder No 04/29/25 09:42 than talking or can be heard Do you often feel tired/ No 04/29/25 09:42 fatigued/ sleepy during daytime? Has anyone observed you stop No 04/29/25 09:42 breathing during sleep? STOP Results Negative 04/29/25 09:42 QUESTION #5 FULL TEXT : Do you snore loudly (louder than talking or can be heard through closed doors)? Tobacco Use History Tobacco Use History - customer success specialist: Tobacco Use History - customer success specialist Tobacco Use Smoking Status Never smoker 04/29/25 09:42 Hx Tobacco Use No 04/29/25 09:42 Years Smoking Packs Smoked per Day Smoking Cessation Date was within the last 15 years Hx Smoking Cessation Date Hx Smoking Cessation Counseling Hematologic Medial History Hematologic Hx - customer success specialist: Hematologic Medical Hx - afterschool babysitter Hx of Blood Transfusion No 04/29/25 09:42 Hx of Transfusion in last 3 No 04/29/25 09:42 Months Date of Last Transfusion (if within last 3 months) Ever experience any problems No 04/29/25 09:42 with transfusion(s)? Specify any problems Hx of Preganancy in last 3 N/A 04/29/25 09:42 Months Nurse Filling Out Transfusion VCHRISTIN 04/29/25 09:42 & Questions: Date: 04/29/25 04/29/25 09:42 Time: 09:43 04/29/25 09:42 Patient unable to answer at this time (ie. confused, unrespo /Reproduction History /Reproductive History - customer success specialist: /Reproductive Hx- customer success specialist Hx Now No 04/29/25 09:42 Gestational Age (in weeks): EDC: Hx Hx Para Hx Section SAB No 04/29/25 09:42 Active Medications Active Medications: Current Medications Generic Name Dose Route Start Last Admin Trade Name Freq PRN Reason Stop Dose Admin Lactated Ringer's 1,000 mls @ 15 mls/hr 05/04/25 09:00 IV .Q48H ANURAG PFSH Medical History Wears glasses Wears contact lenses Non-smoker Asthma Generalized abdominal pain Diverticulitis Irritable bowel syndrome without diarrhea Home Medications ?Medication ?Instructions ?Recorded ?Last Taken ?Type albuterol sulfate 90 mcg/actuation 2 puff inhalation Q6H PRN 03/09/25 Unknown History aerosol inhaler (Ventolin HFA) shortness of breath or wheezing cetirizine 5 mg-pseudoephedrine ER 1 tab PO DAILY 03/09/25 Unknown History 120 mg tablet,extended release,12hr (Zyrtec-D) Allergy/AdvReac Type Severity Reaction Status Date / Time No Known Allergies Allergy Verified 04/29/25 09:37 Surgical History History of wisdom tooth extraction Social History Smoking Status: Never smoker alcohol intake: never substance use type: does not use what type of physical activity do you participate in: walking frequency: daily Review of Systems (Anesthesia) ROS Narrative System reviewed and no additional complaints, except as documented.
[2025-05-04] MEDS: Lactated Ringers 1,000 ML 15 ML IV (09:22)
--- NOTE | 2025-05-04 09:41 | HP.PCM_ITS ---
HPI - General General Date of Admission: 05/04/25 Date of Service: 05/04/25 Chief Complaint: Abdominal pain and diarrhea HPI Narrative ROSA MARIA SPARKS, is a 35 M who presents for evaluation of abdominal pain and diarrhea *[facility] established with referral from PCP for evaluation of IBS / diverticulitis- type symptoms. pt reports he has had two flares about a year apart, will have alternating bowels, abd pain, and gas / bloating; denies blood in stool. Pt reports last flare was end of December / early January of this year. Pt reports that certain foods seem to upset his stomach more and states that his mother has Ulcerative Colitis. Denies current GI symptoms of concern. [facility] Medical History Wears glasses Wears contact lenses Non-smoker Asthma Generalized abdominal pain Diverticulitis Irritable bowel syndrome without diarrhea Home Medications ?Medication ?Instructions ?Recorded ?Last Taken ?Type albuterol sulfate 90 mcg/actuation 2 puff inhalation Q 6H PRN 03/09/25 05/04/25 07:30 History aerosol inhaler (Ventolin HFA) shortness of breath or wheezing cetirizine 5 mg-pseudoephedrine ER 1 tab PO DAILY 02/11 04/06 Unknown History 120 mg tablet,extended release,12hr (Zyrtec-D) Allergy/AdvReac Type Severity Reaction Status Date / Time No Known Allergies Allergy Verified 05/04/25 09:08 Surgical History History of wisdom tooth extraction Social History Smoking Status: Never smoker alcohol intake: never substance use type: does not use what type of physical activity do you participate in: walking frequency: daily ROS Constitutional Constitutional: Denies fatigue, fever(s), poor appetite, weight gain or weight loss Gastrointestinal Gastrointestinal: Denies belching, bloating, change in bowel habits, change in stool character, chewing difficulty, coffee ground emesis, constipation, cramping, diarrhea, dyspepsia, dysphagia, early satiety, excessive flatus, fecal incontinence, heartburn, hematemesis, hematochezia, hemorrhoids, loose stools, melena, nausea, odynophagia, rectal bleeding, tenesmus, vomiting or weight changes Vital Signs Vital Signs Vital Signs: 05/04/25 09:09 05/04/25 09:09 Temperature 98.2 F Temperature Source Temporal Pulse Rate 93 Respiratory Rate 14 Respiratory Pattern Normal Blood Pressure 124/94 H Blood Pressure Mean 104 Blood Pressure Source Monitor Blood Pressure Position Sitting Blood Pressure Location Left Arm Pulse Ox 99 Oxygen Delivery Method Room Air Weight Weight: 198 lb 6.656 oz Body Mass Index (BMI) 27.6 Physical Exam Const alert, oriented x3, no apparent distress and healthy appearing General Appearance: cooperative GI normal to inspection, nondistended, normoactive bowel sounds, soft to palpation, non-tender and non-distended Percussion: normal to percussion Rectal Exam: deferred Assessment & Plan Assessment/Plan (1) Generalized abdominal pain: (2) Diverticulitis: (3) Irritable bowel syndrome without diarrhea: PLAN: Assessment and Plan Assessment and Plan (1) Generalized abdominal pain: Status: Acute (2) Diverticulitis: Status: Acute (3) Irritable bowel syndrome without diarrhea: Status: Acute Plan: 34-year-old male presenting with abdominal pain, which he describes as cramping and occurring mainly after eating. * Reports alternating episodes of diarrhea and constipation. * Family history of ulcerative colitis (UC) reported,?. * No other associated symptoms such as fever, weight loss, or blood in stool reported at this time. Objective * Vitals:?Within normal limits. * Abdominal Examination:?Mild tenderness noted on palpation of the lower left quadrant. No distension or guarding observed. Bowel sounds are normoactive. * Rectal Exam:?Deferred at this time, though a rectal exam could be used to check for inflammation around the anus or blood in the stool. Assessment * 34-year-old male presenting with gastrointestinal symptoms suggestive of inflammatory bowel disease (IBD), specifically ulcerative colitis (UC) or Crohn's disease (CD), given the presence of abdominal pain, alternating diarrhea and constipation, and a family history of UC. * Differential diagnoses also include Irritable Bowel Syndrome (IBS), celiac disease, and infectious enterocolitis. * Although IBS and IBD share some symptoms, IBS does not cause inflammation or physical damage to the digestive tract. * Celiac disease is also a possibility, as its symptoms can overlap with those of IBD and IBS. Plan * Diagnostic Workup: * Lab Tests: * Complete Blood Count (CBC) to check for anemia and inflammation. * C-reactive protein (CRP) and Erythrocyte Sedimentation Rate (ESR) to assess inflammation levels. * Fecal calprotectin to evaluate for intestinal inflammation. * Stool culture to rule out infectious causes. * Consider serologic markers (pANCA and ASCA) to aid in differentiating between UC and CD. * Endoscopy:?Colonoscopy with biopsy is recommended for definitive diagnosis and assessment of disease extent, severity, and to rule out other conditions. * Symptom Management (pending diagnosis): * Dietary Modifications: * A trial trial of a low-residue diet to potentially alleviate abdominal pain and diarrhea, especially during flare-ups. * Avoid high-fiber foods, fatty/greasy foods, and potentially lactose, depending on tolerance. * Encourage small, frequent meals. * Advise increasing water intake, especially with diarrhea. * Consider increasing intake of omega-3 rich foods. Medications: * Acetaminophen (Tylenol) may be used for pain relief. * Avoid aspirin, ibuprofen (Advil, Motrin), or naproxen (Aleve, Naprosyn), as they can worsen symptoms. * Stress Management:?Discussed the potential role of stress in symptom exacerbation and explore stress-reducing techniques (e.g., exercise, relaxation techniques). Orders: Orders ANCA Today K57.92 - Diverticulitis of intestine, part unspecified, without perforation or abscess without bleeding, K58.9 - Irritable bowel syndrome, unspecified, R10.84 - Generalized abdominal pain SALLY Comprehensive Panel Today K57.92 - Diverticulitis of intestine, part unspecified, without perforation or abscess without bleeding, K58.9 - Irritable bowel syndrome, unspecified, R10.84 - Generalized abdominal pain Celiac Disease Profile Today K57.92 - Diverticulitis of intestine, part unsp ecified, without perforation or abscess without bleeding, K58.9 - Irritable bowel syndrome, unspecified, R10.84 - Generalized abdominal pain CRP Today K57.92 - Diverticulitis of intestine, part unspecified, without perforation or abscess without bleeding, K58.9 - Irritable bowel syndrome, unspecified, R10.84 - Generalized abdominal pain Erythrocyte Sed Rate Today K57.92 - Diverticulitis of intestine, part unspecified, without perforation or abscess without bleeding, K58.9 - Irritable bowel syndrome, unspecified, R10.84 - Generalized abdominal pain Immunoglobulins G/A/M/E Today K57.92 - Diverticulitis of intestine, part unspecified, without perforation or abscess without bleeding, K58.9 - Irritable bowel syndrome, unspecified, R10.84 - Generalized abdominal pain Allergen, Food Profile Today K57.92 - Diverticulitis of intestine, part unspecified, without perforation or abscess without bleeding, K58.9 - Irritable bowel syndrome, unspecified, R10.84 - Generalized abdominal pain IBD Expanded Profile Today K57.92 - Diverticulitis of intestine, part unspecified, without perforation or abscess without bleeding, K58.9 - Irritable bowel syndrome, unspecified, R10.84 - Generalized abdominal pain CBC W/Diff, Automated Today K57.92 - Diverticulitis of intestine, part unspecified, without perforation or abscess without bleeding, K58.9 - Irritable bowel syndrome, unspecified, R10.84 - Generalized abdominal pain Comprehensive Metabolic Profil Today K57.92 - Diverticulitis of intestine, part unspecified, without perforation or abscess without bleeding, K58.9 - Irritable bowel syndrome, unspecified, R10.84 - Generalized abdominal pain BIANKA + Protein Elect, Serum Today K57.92 - Diverticulitis of intestine, part unspecified, without perforation or abscess without bleeding, K58.9 - Irritable bowel syndrome, unspecified, R10.84 - Generalized abdominal pain
--- NOTE | 2025-05-04 10:00 | COLBX_PTH ---
PATIENT: ROSA MARIA SPARKS LOC: EN U#:[id number] AGE/SX: 35/M ROOM: RE05/04/[address]: Dr. Praneeth Salinas DO : 1990 BED: DIS: 05/04/2025 SPEC #: [id number] RECD: 05/04/25 12:07 STATUS: QUYNH REJavier #: [id number] GILLIAN: 05/04/25 10:[address]: Praneeth Salinas DEPT: SURGICAL PATHOLOGY RECD BY: Jose Jordan ENTERED: 05/04/25 13:56 SP TYPE: COLON BX SILVER DR: Dr. Mai Gore MD Tissues: A - Ileum, NOS B - COLON BIOPSY C - COLON BIOPSY Procedures: Surgery Specimen Level IV HEADER OPERATION: Colonoscopy with biopsy PRE-OP DIAGNOSIS: Generalized abdominal pain, diverticulitis, irritable bowel syndrome without diarrhea TISSUE SUBMITTED: A- Terminal ileum biopsy, B- Ileocecal valve biopsy, C- Random colon biopsy MICROSCOPIC DIAGNOSIS A. Terminal ileum, biopsy: * Patchy acute inflammation. B. Ileocecal valve, biopsy: * Small intestinal mucosa with no specific pathologic change. C. Colon, random, biopsy: * No specific pathologic change. * The histologic features of microscopic colitis are not demonstrated. MICROSCOPIC DESCRIPTION Slides are reviewed. GROSS DESCRIPTION A. Received in fixative is one container labeled with the patient's name and designated Terminal ileum biopsy. The specimen consists of multiple irregular fragments of delgado tissue that in aggregate measure 1.2 x 0.3 x 0.1 cm. The specimen is totally submitted in one cassette. B. Received in fixative is one container labeled with the patient's name and designated Ileocecal valve biopsy. The specimen consists of two irregular fragments of delgado tissue, each measuring 0.3 cm. The specimen is totally submitted in one cassette. C. Received in fixative is one container labeled with the patient's name and designated Random colon biopsy. The specimen consists of multiple irregular fragments of delgado tissue that in aggregate measure 1.8 x 0.8 x 0.1 cm. The specimen is totally submitted in one cassette. MS 05/04/2025 CPT:34459l5
--- NOTE | 2025-05-04 10:37 | OP.PROVAT_ITS ---
05/04/2025 Mai Gore Md Re : Colonoscopy procedure for Freeman Olvera Dear Bao This procedure was performed on Sunday, May 04, 2025. My impressions and recommendations are as follows: Impressions : - Diverticulosis in the recto-sigmoid colon and in the sigmoid colon. - Congested mucosa in the sigmoid colon, at the splenic flexure, in the transverse colon, at the hepatic flexure and in the cecum. Biopsied. - Congested mucosa in the distal ileum and in the terminal ileum. Biopsied. Recommendations : - Discharge patient to home. - Resume previous diet. - Continue present medications. - Await pathology results. - Repeat colonoscopy in 10 years for screening purposes. My findings are described in the full procedure note, which is enclosed. If I can be of further assistance, please feel free to contact me at . Sincerely, Praneeth Salinas, 05/04/2025 10:36:50 AM This report has been signed electronically.
--- NOTE | 2025-05-04 10:37 | OP.COLON_ITS ---
Patient Name: Freeman Olvera Procedure Date: 05/04/2025 10:07 AM Date of : 1990 Age: 35 Procedure: Colonoscopy Indications: Chronic diarrhea, Clinically significant diarrhea of unexplained origin Providers: Praneeth Salinas DO Referring MD: Mai Gore Md Medicines: Monitored Anesthesia Care Patient Profile: This is a 35 year old male. Refer to note in patient chart for documentation of history and physical. Last Colonoscopy: none. The patient's first colonoscopy is today. Complications: No immediate complications. Procedure: Pre-Anesthesia Assessment: - Prior to the procedure, a History and Physical was performed, and patient medications and allergies were reviewed. The patient is competent. The risks and benefits of the procedure and the sedation options and risks were discussed with the patient. All questions were answered and informed consent was obtained. Patient identification and proposed procedure were verified by the physician in the pre-procedure area. Mental Status Examination: alert and oriented. Airway Examination: normal oropharyngeal airway and neck mobility. Respiratory Examination: clear to auscultation. CV Examination: normal. Prophylactic Antibiotics: The patient does not require prophylactic antibiotics. Prior Anticoagulants: The patient has taken no anticoagulant or antiplatelet agents except for NSAID medication. ASA Grade Assessment: II - A patient with mild systemic disease. After reviewing the risks and benefits, the patient was deemed in satisfactory condition to undergo the procedure. The anesthesia plan was to use monitored anesthesia care (MAC). Immediately prior to administration of medications, the patient was re-assessed for adequacy to receive sedatives. The heart rate, respiratory rate, oxygen saturations, blood pressure, adequacy of pulmonary ventilation, and response to care were monitored throughout the procedure. The physical status of the patient was re-assessed after the procedure. After I obtained informed consent, the scope was passed under direct vision. Throughout the procedure, the patient's blood pressure, pulse, and oxygen saturations were monitored continuously. The Colonoscope was introduced through the anus and advanced to the cecum, identified by appendiceal orifice and ileocecal valve. The colonoscopy was performed without difficulty. The patient tolerated the procedure well. The quality of the bowel preparation was adequate. The terminal ileum, ileocecal valve, appendiceal orifice, and rectum were photographed. Scope In: 10:17:08 AM Scope Withdrawal Time 0 hours 9 minutes 19 seconds Scope Out: 10:29:15 AM Total Procedure Duration Time 0 hours 12 minutes 7 seconds Findings: The perianal and digital rectal examinations were normal. A few diverticula were found in the recto-sigmoid colon and sigmoid colon. An area of mildly congested mucosa was found in the sigmoid colon, at the splenic flexure, in the transverse colon, at the hepatic flexure and in the cecum. Biopsies were taken with a cold forceps for histology. Verification of patient identification for the specimen was done. Estimated blood loss was minimal. A patchy area of the distal ileum and terminal ileum was congested. Biopsies were taken with a cold forceps for histology. Verification of patient identification for the specimen was done. Estimated blood loss was minimal. Impression: - Diverticulosis in the recto-sigmoid colon and in the sigmoid colon. - Congested mucosa in the sigmoid colon, at the splenic flexure, in the transverse colon, at the hepatic flexure and in the cecum. Biopsied. - Congested mucosa in the distal ileum and in the terminal ileum. Biopsied. Recommendation: - Discharge patient to home. - Resume previous diet. - Continue present medications. - Await pathology results. - Repeat colonoscopy in 10 years for screening purposes. Procedure Code(s): --- Professional --- 23524, Colonoscopy, flexible; with biopsy, single or multiple CPT copyright 2021 [employer]. All rights reserved. The codes documented in this report are preliminary and upon invoice coder review may be revised to meet current compliance requirements. Praneeth Salinas DO 05/04/2025 10:36:50 AM This report has been signed electronically. Number of Addenda: 0 Note Initiated On: 05/04/2025 10:07 AM
--- NOTE | 2025-05-04 10:41 | PCM.POST.ANE ---
Anesthesia: Postop Eval I Current Vital Signs Temperature: 97.7 F Pulse Rate: 67 Blood Pressure: 89/51 Respiratory Rate: 16 Pulse Ox: 98 Oxygen Delivery Method: Room Air Assessment Airway patent: Yes Spontaneous unlabored respirations: Yes Mental status: Asleep nausea: No Vomiting: No Anesthesia Complication: No Fluid Hydration Crystalloid volume administer (ml): 500 Total IV fluid infused: 500 Progress Note Anesthesia document: Postop Eval 1 completed: Yes
--- NOTE | 2025-05-04 11:14 | PCM.POSTANE2 ---
Anesthesia Postop Eval I Sum Postop Eval Completion status Anesthesia document: Postop Eval 1 completed: Yes Anesthesia Postop Eval I Summary Anesthesia Postop Eval I Summary: Anesthesia Postop Eval I: Assessment Summary Airway patent Yes 05/04/25 10:42 [email or web address] Spontaneous unlabored Yes 05/04/25 10:42 [email or web address] respirations Mental status Asleep 05/04/25 10:42 [email or web address] nausea No 05/04/25 10:42 [email or web address] Vomiting No 05/04/25 10:42 [email or web address] Anesthesia Postop Eval I: Fluid Summary Crystalloid volume administer 500 05/04/25 10:42 [email or web address] (ml) Colloids volume administered ( ml) Blood Product volume administered (ml) Total IV fluid infused 500 05/04/25 10:42 [email or web address] Anesthesia Postop Eval I: Summary Notes Anesthesia Complication No 05/04/25 10:42 [email or web address] Anesthesia Complication Comment: Post-operative progress note Anesthesia: Postop Eval II Evaluation Mental status: Awake Pain Level: 0 nausea: No Vomiting: No
== END 2025-05-04 11:21 | disposition home or self-care (01) ==
LOC: EN 08:48 → AC 08:50
PROVIDERS: PCP Family Medicine; Referring Provider Family Medicine; Visit Provider Internal Medicine Gastroenterology
PROC: 0DJD8ZZ Inspection of Lower Intestinal Tract, Via Natural or Artificial Opening Endoscopic (ICD-10-PCS; CPT 45378; principal; 2025-05-04 09:55)
DX: K58.0 Irritable bowel syndrome with diarrhea (principal); K63.89 Other specified diseases of intestine; K57.30 Diverticulosis of large intestine without perforation or abscess without bleeding; R10.84 Generalized abdominal pain
CPT/HCPCS: 47000; 88305; J2405